=== PATIENT | female | born 1990 | race Caucasian/White ===

== ENCOUNTER 2016-11-06 19:21 | Emergency (ER) | payer MEDICAID ==
--- NOTE | 2016-11-06 19:40 | EDPHY ---
H & P Stated Complaint: pelvic/rectal pain HPI/ROS: CHIEF COMPLAINT: Rectal pain HISTORY OF PRESENT ILLNESS: The patient is a 26 year old female with history of endometriosis presenting with rectal and pelvic pain. The patient has had 3 laparoscopic surgeries. Her last surgery was in June, at that time she had an IUD placed. Since the IUD was placed she has severe pain pelvic pain and rectal pain during the time of her menstrual cycle. Her pain today is the worse it has been. She took Percocet and Ibuprofen and found no relief. Her pain radiates down her legs. She reports feeling constipated but has been having episodes of diarrhea. She has associated nausea secondary to pain. The patient was seen here 09/10/16 for similar pain and had a transvaginal ultrasound that showed the IUDto be in place. Strings are palpable. She is scheduled for endometriosis surgery in [place] on 11/30/16. REVIEW OF SYSTEMS: A ten point review of systems was performed and is negative with the exception of the items mentioned in the HPI. Source: Patient Exam Limitations: No limitations - Personal History LMP (Females 10-55): IUD In Place Current Tetanus/Diphtheria Vaccine: Unsure Current Tetanus Diphtheria and Acellular Pertussis (TDAP): Unsure - Medical/Surgical History Hx Asthma: No Hx Chronic Respiratory Disease: No Hx Diabetes: No Hx Cardiac Disease: No Hx Renal Disease: No Hx Cirrhosis: No Hx Alcoholism: No Hx HIV/AIDS: No Hx Splenectomy or Spleen Trauma: No Other PMH: endometriosis - Social History Smoking Status: Never smoked Additional Social History: Recently moved here. 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 - Physical Exam Exam: General Appearance: Alert. Vital signs reviewed. Eyes: Pupils equal and round, no conjunctival injection, no discharge. Anicteric. ENT, Mouth: Mucous membranes are moist, no oropharyngeal erythema or edema. Neck: No lymphadenopathy, supple. Respiratory: Lungs are clear to auscultation; no wheezes, rales, or rhonchi. Cardiovascular: Regular rate and rhythm; no murmur, rub, or gallop. Gastrointestinal: Abdomen is soft, lower abdominal nonfocaltenderness, no guarding,no masses or organomegaly, bowel sounds normal. Pelvic: Bimanual exam performed. IUD strings palpable. No cervical motion tenderness. Skin: Warm and dry, no rashes on exposed skin, normal color. Back: Nontender to palpation over the thoracolumbar spine. No CVAT. Extremities: No lower extremity edema, no calf tenderness or swelling. Neurological: Alert and oriented. Moving all four extremities easily and equally. Psychiatric: Normal affect. Constitutional: Initial Vital Signs Temperature (C) 36.7 C 11/06/16 19:25 Heart Rate 96 11/06/16 19:25 Respiratory Rate 20 11/06/16 19:25 Blood Pressure 123/79 H 11/06/16 19:25 O2 Sat (%) 97 11/06/16 19:25 O2 Delivery Mode Room Air Allergies/Adverse Reactions: naproxen Allergy (Verified 11/06/16 19:24) Home Medications: Medication Instructions Recorded oxyCODONE IR [Oxycodone Ir (*)] 5 - 10 mg PO Q6 PRN #20 tab 09/09/16 Klonopin 11/06/16 oxyCODONE/APAP 5/325 [Percocet 1 - 2 tab PO Q4H PRN #10 tab 11/06/16 5/325 (RX)] Medical Decision Making ED Course/Re-evaluation: She received zofran 4 mg IV and Dilaudid 1.5 mg IV. With these measures she attained some pain relief, although not complete. This pain has been present at the time of her expected menses since placement of an IUD in June. IUD appears to be in place based on bimanual exam. US performed in August, at which time IUD was in place. No rectal fissures or hemorrhoids to explain rectal pain. She states that she could not be . I do not suspect ovarian torsion or cyst. I do not suspect appendicitis. I think that her pain is related to her endometriosis. She agrees and also agrees that more aggressive work-up today is not needed. She is primarily interested in pain relief. She is planning surgery mid-November. - Data Points Medications Given: Discontinued Medications Hydromorphone HCl (Dilaudid) 1 mg IVP EDNOW ONE Stop: 11/06/16 20:08 Last Admin: 11/06/16 20:17 Dose: 1 mg Hydromorphone HCl (Dilaudid) 0.5 mg IVP EDNOW ONE Stop: 11/06/16 21:06 Last Admin: 11/06/16 21:00 Dose: 0.5 mg Ondansetron HCl (Zofran) 4 mg IVP EDNOW ONE Stop: 11/06/16 20:08 Last Admin: 11/06/16 20:09 Dose: 4 mg Oxycodone/Acetaminophen (Percocet 5/325mg Prepack#4) 1 btl TAKEHOME EDNOW ONE Stop: 11/06/16 21:04 Last Admin: 11/06/16 21:13 Dose: 1 btl Departure - Departure Disposition: Home, Routine, Self-Care Clinical Impression: Endometriosis Condition: Good Instructions: Endometriosis (ED) Additional Instructions: 1. Followup with your scheduled surgery in [place]. 2. Adult Pain & Fever Control: We recommend Acetaminophen (Tylenol) and Ibuprofen (Motrin,Advil) for pain and fever control. When fever is high or pain severe, both drugs can be used at the same time, but at different intervals. Please note the time differences. Your dose is: Acetaminophen 450mg every 4 to 6 hours Ibuprofen 400mg every 4 hours with food Note: do not take Acetaminophen with Hydrocodone (Vicodin, Lortab) or Oycodone (Percocet). These medications also contain Acetaminophen. No more than 3000mg of Acetaminophen should be taken in 24 hours (for an adult). 3. Take Oxycodone as directed for severe pain. Stand Alone Forms: Narcotic Guidelines Prescriptions: oxyCODONE/APAP 5/325 [Percocet 5/325 (RX)] 1 - 2 tab PO Q4H PRN #10 tab PRN Reason: Pain, Severe Report Scribed for: Donna Pradhan Report Scribed by: Angie Thurman Date of Report: 11/06/16 Time of Report: 19:55 Physician Review and Approval Statement: 11/06/16 19:40 Portions of this note were transcribed by the medical billing manager. I, Dr. Donna Pradhan, personally performed the history, physical exam, and medical decision- making; and confirmed the accuracy of the information in the transcribed note.
[2016-11-06] MEDS ORDERED: ONDANSETRON 4 MG/2 ML VIAL ONE (19:59)
[2016-11-06] MEDS ORDERED: HYDROmorphONE/DILAUDID 1 MG/ML SYR IVP ONE ×2 (20:07→21:05)
[2016-11-06] MEDS ORDERED: ONDANSETRON 4 MG/2 ML VIAL IVP ONE (20:07)
[2016-11-06] MEDS ORDERED: HYDROmorphONE/DILAUDID 1 MG/ML SYR ONE (20:56)
[2016-11-06] MEDS ORDERED: OXYCODONE/APAP 5/325MG PREPACK#4 BTL TAKEHOME ONE (21:03)
[2016-11-06 21:42] VITALS: BP 101/83; PULSE 98; RESP 16; TEMP 97; O2SAT 93
== END 2016-11-06 21:34 | disposition home or self-care (01) ==
DX: N80.9 Endometriosis, unspecified (principal)
CPT/HCPCS: 96374; J1170; J2405

== ENCOUNTER 2016-11-20 07:49 | Emergency (ER) | payer MEDICAID ==
[2016-11-20 08:00] VITALS: TEMP 98.2
[2016-11-20] MEDS ORDERED: fentaNYL 100 MCG/2 ML INJ IVP ONE (08:08)
[2016-11-20] MEDS ORDERED: HYDROmorphONE/DILAUDID 1 MG/ML SYR IVP ONE ×4 (08:33→11:40)
--- NOTE | 2016-11-20 09:19 | EDPHY ---
H & P Time Seen by Provider: 11/20/16 08:58 HPI/ROS: CHIEF COMPLAINT: Left-sided pelvic pain HISTORY OF PRESENT ILLNESS: 26-year-old female with history of endometriosis presents with severe left-sided pelvic pain. She has a history of severe endometriosis, status post laparoscopy x3 for endometriosis. She is scheduled for a repeat operation on 11/30/2016 in [place]. She takes Percocet daily for ongoing pain. The pain has been worsened since last evening. The pain is in the left lower quadrant and waxes and wanes. No associated symptoms. She took her last Percocet this morning. REVIEW OF SYSTEMS: Constitutional: No fever, no chills Eyes: No visual changes ENT: No sore throat Respiratory: No cough, no shortness of breath Cardiac: No chest pain Genitourinary: no dysuria Musculoskeletal: No leg pain or swelling Skin: rash on left side of back for one-week Neurological: No headache, no numbness, no weakness Psychiatric: Feels anxious Past Medical/Surgical History: Endometriosis Social History: moved to [place] 2 months ago Smoking Status: Never smoked Physical Exam: General Appearance: Alert, appears in pain Eyes: Pupils equal and round, no conjunctival pallo ENT, Mouth: Mucous membranes moist Neck: Normal inspection Respiratory: Lungs are clear to auscultation Cardiovascular: Regular rate and rhythm Gastrointestinal: Abdomen is soft, left lower quadrant tenderness Neurological: A&O, nonfocal, normal gait Skin: Warm and dry, left lumbar area-there is a healing rash of grouped papules , no vesicles or pustules Extremities: normal inspection Psychiatric: appears anxious Constitutional: Initial Vital Signs Temperature (C) 36.8 C 11/20/16 07:50 Heart Rate 95 11/20/16 07:50 Respiratory Rate 20 11/20/16 07:50 Blood Pressure 138/93 H 11/20/16 07:50 O2 Sat (%) 96 11/20/16 07:50 O2 Delivery Mode Room Air Allergies/Adverse Reactions: naproxen Allergy (Unknown, Verified 11/20/16 07:57) Home Medications: Medication Instructions Recorded oxyCODONE/APAP 5/325 [Percocet 1 - 2 tab PO Q4H PRN #10 tab 11/06/16 5/325 (RX)] oxyCODONE/APAP 5/325 [Percocet 1 tab PO Q4 PRN #20 tab 11/20/16325 (*)] oxyCODONE/APAP [Percocet 1 tab PO Q4 PRN #20 tab 11/20/16 (*)] Medical Decision Making - Diagnostics Imaging: Pelvic ultrasound read by the radiologist reveals a 10 mm left hemorrhagic ovarian cyst, no free fluid or torsion. ED Course/Re-evaluation: Patient presents with severe pelvic pain. Stat test to rule out ectopic is negative. Stat ultrasound reveals a small ovarian cyst, otherwise normal. Presentation c/w endometriosis. The patient was given Dilaudid 1 mg IV on arrival. This was followed by multiple doses of IV Dilaudid and 1 mg of IV Ativan to control her pain. Her pain was quite difficult to control, but ultimately was under good control. Unfortunately she is allergic to NSAIDs. I wrote a prescription for Percocet. 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 Differential Diagnosis: Differential diagnosis includes though it is not limited to ectopic , ovarian cyst, ovarian torsion, PID, UTI, appendicitis. - Data Points Laboratory Results: Laboratory Results 11/20/16 08:00 11/20/16 08:00 11/20/16 11/20/16 11/20/16 08:00 08:00 08:00 WBC 6.14 10^3/uL 10^3/uL (3.80-9.50) RBC 4.76 10^6/uL 10^6/uL (4.18-5.33) Hgb 15.2 g/dL g/dL (12.6-16.3) Hct 45.2 % % (38.0-47.0) MCV 95.0 fL fL (81.5-99.8) MCH 31.9 pg pg (27.9-34.1) MCHC 33.6 g/dL g/dL (32.4-36.7) RDW 11.7 % % (11.5-15.2) Plt Count 165 10^3/uL 10^3/uL (150-400) MPV 11.7 fL fL (8.7-11.7) Neut % (Auto) 52.1 % % (39.3-74.2) Lymph % (Auto) 39.7 % % (15.0-45.0) [place] % (Auto) 6.7 % % (4.5-13.0) Eos % (Auto) 0.5 % L % (0.6-7.6) Baso % (Auto) 0.7 % % (0.3-1.7) Nucleat RBC Rel Count 0.0 % % (0.0-0.2) Absolute Neuts (auto) 3.20 10^3/uL 10^3/uL (1.70-6.50) Absolute Lymphs (auto) 2.44 10^3/uL 10^3/uL (1.00-3.00) Absolute Monos (auto) 0.41 10^3/uL 10^3/uL (0.30-0.80) Absolute Eos (auto) 0.03 10^3/uL 10^3/uL (0.03-0.40) Absolute Basos (auto) 0.04 10^3/uL 10^3/uL (0.02-0.10) Absolute Nucleated RBC 0.00 10^3/uL 10^3/uL (0-0.01) Immature Gran % 0.3 % % (0.0-1.1) Immature Gran # 0.02 10^3/uL 10^3/uL (0.00-0.10) Sodium 141 mEq/L mEq/L (134-144) Potassium 4.1 mEq/L mEq/L (3.5-5.2) Chloride 104 mEq/L mEq/L (97-110) Carbon Dioxide 23 mEq/l mEq/l (22-31) Anion Gap 14 mEq/L mEq/L (8-16) BUN 16 mg/dL mg/dL (7-23) Creatinine 0.8 mg/dL mg/dL (0.6-1.0) Estimated GFR > 60 Glucose 93 mg/dL mg/dL (70-100) Calcium 10.1 mg/dL mg/dL (8.5-10.4) Beta HCG, Qual NEGATIVE Medications Given: Discontinued Medications Fentanyl (Sublimaze) 0 mcg IVP EDNOW ONE Stop: 11/20/16 08:09 Last Admin: 11/20/16 08:14 Dose: 50 mcg Hydromorphone HCl (Dilaudid) 1 mg IVP EDNOW ONE Stop: 11/20/16 08:34 Last Admin: 11/20/16 08:38 Dose: 1 mg Hydromorphone HCl (Dilaudid) 1 mg IVP EDNOW ONE Stop: 11/20/16 09:24 Last Admin: 11/20/16 09:34 Dose: 1 mg Hydromorphone HCl (Dilaudid) 1 mg IVP EDNOW ONE Stop: 11/20/16 10:24 Last Admin: 11/20/16 10:31 Dose: 1 mg Hydromorphone HCl (Dilaudid) 1 mg IVP EDNOW ONE Stop: 11/20/16 11:41 Last Admin: 11/20/16 11:41 Dose: 1 mg Lorazepam (Ativan Injection) 1 mg IVP EDNOW ONE Stop: 11/20/16 09:24 Last Admin: 11/20/16 09:34 Dose: 1 mg Ondansetron HCl (Zofran) 4 mg IVP EDNOW ONE Stop: 11/20/16 11:41 Last Admin: 11/20/16 11:41 Dose: 4 mg Departure - Departure Disposition: Home, Routine, Self-Care Clinical Impression: Pelvic pain Condition: Good Instructions: Pelvic Pain in Women (ED) Additional Instructions: Follow-up with your nuclear powerplant supervisor. Return for worsening symptoms or any concerns. Referrals: Cristin Hutchinson MD [Medical Doctor] - As per Instructions Prescriptions: oxyCODONE/APAP 5/325 [Percocet 5/325 (*)] 1 tab PO Q4 PRN #20 tab PRN Reason: pain oxyCODONE/APAP 5/325 [Percocet 5/325 (*)] 1 tab PO Q4 PRN #20 tab PRN Reason: pain
[2016-11-20] MEDS ORDERED: LORazepam 2 MG/ML INJ IVP ONE (09:23)
[2016-11-20 09:56] LABS: % IMMATURE GRANULYOCYTES 0.3 % (0.0-1.1); ABSOLUTE IMMATURE GRANULOCYTES 0.02 10^3/uL (0.00-0.10); ADD DIFF? NO; ADD MORPH? NO; ADD SCAN? NO; ATYPICAL LYMPHOCYTE FLAG 30 (0-99); FRAGMENT RBC FLAG 0 (0-99); HEMATOCRIT 45.2 % (38.0-47.0); HEMOGLOBIN 15.2 g/dL (12.6-16.3); LEFT SHIFT FLG 0 (0-99); LIPEMIA HEMOLYSIS FLAG 80 (0-99); MEAN CELL HEMOGLOBIN 31.9 pg (27.9-34.1); MEAN CELL HEMOGLOBIN CONCENTR. 33.6 g/dL (32.4-36.7); MEAN PLATELET VOLUME 11.7 fL (8.7-11.7); PLATELET CLUMPS FLAG 0 (0-99); PLATELET COUNT 165 10^3/uL (150-400); RED BLOOD CELL COUNT 4.76 10^6/uL (4.18-5.33); RED CELL DISTRIBUTION WIDTH 11.7 % (11.5-15.2)
[2016-11-20 10:03] LABS: ANION GAP 14 mEq/L (8-16); CALCIUM 10.1 mg/dL (8.5-10.4); CARBON DIOXIDE 23 mEq/l (22-31); CHLORIDE 104 mEq/L (97-110); CREATININE 0.8 mg/dL (0.6-1.0); GLOMERULAR FILTRATION RATE > 60; GLUCOSE 93 mg/dL (70-100); POTASSIUM 4.1 mEq/L (3.5-5.2); SODIUM 141 mEq/L (134-144)
[2016-11-20] MEDS ORDERED: HYDROmorphONE/DILAUDID 1 MG/ML SYR ONE (11:33)
[2016-11-20] MEDS ORDERED: ONDANSETRON 4 MG/2 ML VIAL ONE (11:36)
[2016-11-20] MEDS ORDERED: ONDANSETRON 4 MG/2 ML VIAL IVP ONE (11:40)
[2016-11-20 11:41] VITALS: BP 101/56; O2SAT 96
[2016-11-20 12:31] VITALS: PULSE 78; RESP 18
== END 2016-11-20 12:38 | disposition home or self-care (01) ==
DX: R10.2 Pelvic and perineal pain (principal)
CPT/HCPCS: 96374; J1170; J2405; J3010

== ENCOUNTER 2017-01-07 15:20 | Inpatient (IN) | payer MEDICAID ==
--- NOTE | 2017-01-07 15:30 | EDPHY ---
H & P Time Seen by Provider: 01/07/17 15:29 HPI/ROS: CHIEF COMPLAINT: Fever, lower abdominal pain, constipation. HISTORY OF PRESENT ILLNESS: The patient is a 26-year-old female with a history of endometriosis presenting with fever, sharp lower abdominal pain, and constipation for the past 3 days. She had laparoscopic surgery 5 weeks ago for endometriosis and had a partial sigmoid colon resection at that time. She has not had a normal bowel movement since the surgery and admits having a decreased appetite. She denies vomiting, diarrhea, dysuria, or other complaints. Her last period began 3 days ago and coincided with the onset of her other symptoms today. REVIEW OF SYSTEMS: A complete 10-point review of systems was performed and is negative except for those items mentioned in the HPI. Past Medical/Surgical History: Endometriosis. Social History: From [place]. Smoking Status: Never smoked Physical Exam: General Appearance: Alert, no distress Eyes: Pupils equal and round, no conjunctival pallor or injection ENT, Mouth: Mucous membranes moist Neck: Normal inspection Respiratory: Lungs are clear to auscultation Cardiovascular: Regular rate and rhythm Gastrointestinal: Abdomen is soft, normal bowel sounds. LLQ tenderness. Neurological: A&O, nonfocal, normal gait Skin: Warm and dry, no rash Extremities: Nontender, no pedal edema Psychiatric: Mood and affect normal Constitutional: Initial Vital Signs Temperature (C) 36.9 C 01/07/17 15:22 Heart Rate 105 H 01/07/17 15:22 Respiratory Rate 18 01/07/17 15:22 Blood Pressure 109/69 01/07/17 15:22 O2 Sat (%) 99 01/07/17 15:22 O2 Delivery Mode Room Air Allergies/Adverse Reactions: naproxen Allergy (Unknown, Verified 01/07/17 18:44) Dyspnea Home Medications: Medication Instructions Recorded Herbals/Supplements -Info Only 1 ea PO DAILY 01/07/17 Ibuprofen [Motrin (*)] 400 mg PO PRN PRN 01/07/17 Methylnaltrexone [place] [Relistor] 300 mg PO DAILY PRN 01/07/17 Multivitamins [Multivitamin (*)] 1 each PO DAILY 01/07/17 Progesterone, Micronized 100 mg PO HS 01/07/17 [Progesterone] clonazePAM [Klonopin (*)] 0.5 mg PO DAILY PRN 01/07/17 oxyCODONE/APAP 5/325 [Percocet 1 - 2 tab PO Q4 PRN 01/07/17 (*)] Medical Decision Making - Diagnostics Imaging Results: Imaging Impressions Abdomen CT 01/07/17 16:22 Impression: 1. Complex fluid collection associated with the operative bed of recent surgery is presumed to represent postoperative abscess with multiloculated benign fluid collection felt to be much less likely. 2. See above report for additional findings. Results called and discussed with Venessa Bellamy M.D. on 01/07/2017 at 1738 hours. ED Course/Re-evaluation: 26-year-old female with a history of endometriosis and chronic pelvic pain presents with lower abdominal pain, constipation, and fever. She is status-post sigmoid colon resection 5 weeks ago. On exam she is tender in the left lower quadrant. I have low suspicion for bowel obstruction. We will obtain an abdomen/ pelvis CT. I reviewed this patient on the [place] Prescription Drug Monitoring Program and I am familiar with her. Her last prescription of narcotics was 90 Percocet Tablets 01/02/2017. WBC elevated at 14.99. UA c/w UTI. 1733: CT results conveyed to me by radiology as post-operative abscess. See Imaging Reports section for official report. Results discussed with the patient. 1739: Invanz 1 g IV given. Consulted with Dr. Mcknight, surgery. Dr. Montes De Oca saw the patient emergency department and will admit the patient to the hospital. Differential Diagnosis: Differential diagnosis includes though it is not limited to appendicitis, cholecystitis, diverticulitis, pyelonephritis, bowel perforation, small bowel obstruction. - Data Points Laboratory Results: Laboratory Results 01/07/17 15:44 01/07/17 15:44 01/07/17 01/07/17 01/07/17 16:25 15:44 15:44 WBC 14.99 10^3/uL H 10^3/uL (3.80-9.50) RBC 4.12 10^6/uL L 10^6/uL (4.18-5.33) Hgb 12.9 g/dL g/dL (12.6-16.3) Hct 39.3 % % (38.0-47.0) MCV 95.4 fL fL (81.5-99.8) MCH 31.3 pg pg (27.9-34.1) MCHC 32.8 g/dL g/dL (32.4-36.7) RDW 12.2 % % (11.5-15.2) Plt Count 233 10^3/uL 10^3/uL (150-400) MPV 11.0 fL fL (8.7-11.7) Neut % (Auto) 80.0 % H % (39.3-74.2) Lymph % (Auto) 10.9 % L % (15.0-45.0) [place] % (Auto) 8.3 % % (4.5-13.0) Eos % (Auto) 0.1 % L % (0.6-7.6) Baso % (Auto) 0.2 % L % (0.3-1.7) Nucleat RBC Rel Count 0.0 % % (0.0-0.2) Absolute Neuts (auto) 12.00 10^3/uL H 10^3/uL (1.70-6.50) Absolute Lymphs (auto) 1.63 10^3/uL 10^3/uL (1.00-3.00) Absolute Monos (auto) 1.24 10^3/uL H 10^3/uL (0.30-0.80) Absolute Eos (auto) 0.01 10^3/uL L 10^3/uL (0.03-0.40) Absolute Basos (auto) 0.03 10^3/uL 10^3/uL (0.02-0.10) Absolute Nucleated RBC 0.00 10^3/uL 10^3/uL (0-0.01) Immature Gran % 0.5 % % (0.0-1.1) Immature Gran # 0.08 10^3/uL 10^3/uL (0.00-0.10) Sodium 135 mEq/L mEq/L (134-144) Potassium 4.0 mEq/L mEq/L (3.5-5.2) Chloride 98 mEq/L mEq/L (97-110) Carbon Dioxide 26 mEq/l mEq/l (22-31) Anion Gap 11 mEq/L mEq/L (8-16) BUN 9 mg/dL mg/dL (7-23) Creatinine 0.6 mg/dL mg/dL (0.6-1.0) Estimated GFR > 60 Glucose 96 mg/dL mg/dL (70-100) Calcium 9.9 mg/dL mg/dL (8.5-10.4) Lipase 74.0 IU/L IU/L (23-300) Urine Color YELLOW Urine Appearance CLEAR Urine pH 6.0 (5.0-7.5) Ur Specific [place] 1.003 (1.002-1.030) Urine Protein NEGATIVE (NEGATIVE) Urine Ketones NEGATIVE (NEGATIVE) Urine Blood 1+ H (NEGATIVE) Urine Nitrate NEGATIVE (NEGATIVE) Urine Bilirubin NEGATIVE (NEGATIVE) Urine Urobilinogen NEGATIVE EU EU (0.2-1.0) Ur Leukocyte Esterase NEGATIVE (NEGATIVE) Urine RBC 1-3 /hpf /hpf (0-3) Urine WBC 3-5 /hpf H /hpf (0-3) Ur Epithelial Cells TRACE /lpf /lpf (NONE-1+) Urine Bacteria 2+ /hpf H /hpf (NONE SEEN) Urine Glucose NEGATIVE (NEGATIVE) Medications Given: Discontinued Medications Sodium Chloride (Ns) 1,000 mls @ 0 mls/hr IV ONCE ONE PRN Reason: Wide Open Stop: 01/07/17 16:17 Last Admin: 01/07/17 16:00 Dose: 1,000 mls Ertapenem 1 gm/ Sodium (Chloride) 100 mls @ 200 mls/hr IV EDNOW ONE PRN Reason: Protocol Stop: 01/07/17 18:06 Last Admin: 01/07/17 18:01 Dose: 100 mls Departure - Departure Disposition: [facility] Acute Clinical Impression: Postoperative abscess Qualifiers: Encounter type: initial encounter Qualified Code(s): T81.4XXA - Infection following a procedure, initial encounter Condition: Fair Report Scribed for: Venessa Bellamy Report Scribed by: Boyd Bal Date of Report: 01/07/17 Time of Report: 15:30 Physician Review and Approval Statement: 01/07/17 15:30 Portions of this note were transcribed by a medical technician. I personally performed a history, physical exam, medical decision making, and confirmed accuracy of information the transcribed note.
[2017-01-07] MEDS ORDERED: NS 1,000 ML IV ONE (16:16)
[2017-01-07 16:31] LABS: % IMMATURE GRANULYOCYTES 0.5 % (0.0-1.1); ABSOLUTE IMMATURE GRANULOCYTES 0.08 10^3/uL (0.00-0.10); ADD DIFF? NO; ADD MORPH? NO; ADD SCAN? NO; ATYPICAL LYMPHOCYTE FLAG 0 (0-99); FRAGMENT RBC FLAG 0 (0-99); HEMATOCRIT 39.3 % (38.0-47.0); HEMOGLOBIN 12.9 g/dL (12.6-16.3); LEFT SHIFT FLG 0 (0-99); LIPEMIA HEMOLYSIS FLAG 80 (0-99); MEAN CELL HEMOGLOBIN 31.3 pg (27.9-34.1); MEAN CELL HEMOGLOBIN CONCENTR. 32.8 g/dL (32.4-36.7); MEAN CELL VOLUME 95.4 fL (81.5-99.8); PLATELET CLUMPS FLAG 10 (0-99); PLATELET COUNT 233 10^3/uL (150-400); RED BLOOD CELL COUNT 4.12 10^6/uL (4.18-5.33); RED CELL DISTRIBUTION WIDTH 12.2 % (11.5-15.2)
[2017-01-07 16:45] LABS: ANION GAP 11 mEq/L (8-16); CALCIUM 9.9 mg/dL (8.5-10.4); CARBON DIOXIDE 26 mEq/l (22-31); CHLORIDE 98 mEq/L (97-110); CREATININE 0.6 mg/dL (0.6-1.0); GLOMERULAR FILTRATION RATE > 60; GLUCOSE 96 mg/dL (70-100); SODIUM 135 mEq/L (134-144)
[2017-01-07 16:46] LABS: COLOR YELLOW; LEUKOCYTE ESTERASE,URINE NEGATIVE (NEGATIVE); NITRITE,URINE NEGATIVE (NEGATIVE)
[2017-01-07 16:54] LABS: BACTERIA 2+ /hpf (NONE SEEN)
[2017-01-07] MEDS ORDERED: IOPAMIDOL (ISOVUE-300) 100 ML BTL IV ONE (17:06)
[2017-01-07] MEDS ORDERED: ERTAPENEM 1 GM in NS 100 ML IV ONE (17:37)
[2017-01-07] MEDS ORDERED: METHYLNALTREXONE BROMIDE PO PRN (19:00)
--- NOTE | 2017-01-07 19:36 | GDS ---
[f rep st] TRANSFER SUMMARY CHIEF COMPLAINT: Lower abdominal pain, chills, fever. PRESENT ILLNESS: A 26-year-old female who 5 weeks ago was in [place], [place], at a specialist having surgery for endometriosis. She has had 3 previous laparoscopies for endometriosis. She und erwent resection of endometrial tissue as well as a sigmoid colectomy. She was having an uneventful recovery when she started having fevers and chills for the last [address] scan done today in [facility] [place] emergency department shows a 6 cm pelvic abscess. This would be drained by IR through a transglut eal approach. PAST MEDICAL HISTORY: ALLERGIES: Naprosyn. CURRENT MEDICATIONS: Percocet. The patient has been on Percocet many years and has a chronic pain doctor she has just started with. She has chronic pelvic pain. Klonopin 0.5 mg daily. SOCIAL HISTORY: Nonsmoker. No alcohol use. PREVIOUS SURGERY: Laparoscopy x3, recent colectomy. REVIEW OF SYSTEMS: Denies asthma, heart trouble, diabetes, epilepsy, rheumatic fever. PHYSICAL EXAMINATION: GENERAL: Pleasant, slender female. HEENT: No scleral icterus. Pharynx deshaun ar. NECK: Supple without adenopathy. LUNGS: Clear. HEART: Normal S1, S2 without murmur. ABDOM EN: Soft, but tender in the lower quadrants. EXTREMITIES: Unremarkable. NEURO: Unremarkable. CT is reviewed and shows the pelvic fluid collection. LABORATORY DATA: Includes a white blood count of 15,000. ASSESSMENT: Pelvic abscess 5 weeks after a colectomy. RECOMMENDATIONS: Admit. IV ertapenem started. IR drainage of pelvic abscess. Appropriate antibio tics after culture. /[id number]/MODL
[2017-01-07] MEDS: LR 1,000 ML IV SCH (20:37)
[2017-01-07] MEDS: PROGESTERONE,MICR 100 MG CAP PO SCH (20:48)
[2017-01-07] MEDS: oxyCODONE IR 5 MG TAB PO PRN (20:48)
[2017-01-07] MEDS: DIAZEPAM 5 MG TAB PO PRN (21:43)
--- NOTE | 2017-01-07 21:45 | SOAPPROG ---
SOAP Progress Note Assessment/Plan: Assessment: Reviewed images. Transgluteal approach would be needed. Patient on board with procedure tomorrow with IVCS. Had dinner tonight. Plan: CT guided abscess drain placement tomorrow. CT informed. It will either be Dr. Gordon, who is on CT, or myself. Thank you for consulting IR. 01/07/17 21:43 Subjective: Patient in no apparent distress. Bowel surgery 5 weeks ago in [place]. Objective: Vital Signs Temp Pulse Resp BP Pulse Ox 37.0 C 116 H 20 114/76 97 01/07/17 19:41 01/07/17 19:41 01/07/17 19:41 01/07/17 19:41 01/07/17 19:41 01/06/17 01/07/17 01/08/17 05:59 05:59 05:59 Intake Total 1000 Balance 1000 Labs and vitals noted. ICD10 Worksheet Patient Problems: Problems Problem Status Onset Postoperative abscess Acute
[2017-01-08] MEDS: oxyCODONE IR 5 MG TAB PO PRN ×4 (01:56→20:30)
[2017-01-08] MEDS: HYDROmorphONE/DILAUDID 1 MG/ML SYR IVP PRN ×4 (02:00→20:31)
[2017-01-08] MEDS: ONDANSETRON DISINTEGRATING 4 MG TAB PO PRN ×2 (02:05→05:56)
[2017-01-08] MEDS: LR 1,000 ML IV SCH ×2 (05:55→20:30)
[2017-01-08] MEDS: DIAZEPAM 5 MG TAB PO PRN ×2 (08:21→15:30)
[2017-01-08 08:24] LABS: APTT 30.9 SEC (23.0-38.0); INR 1.15 (0.83-1.16); PROTIME(PATIENT) 14.6 SEC (12.0-15.0)
--- NOTE | 2017-01-08 08:35 | SOAPPROG ---
SOAP Progress Note Assessment/Plan: Assessment/Plan: 26 Y F s/p laparotomy c bowel resection in [place] on 11/30. Now with multiloculated abscess on CT. Abscess. IR drainage today. Chronic opioid dependence. Patient is established with a pain MD as of last week she says. Continue IV abx and supportive care. Constipation. Likely 2/2 narcotic use. On relistor. Has been using fiber, hydration, walking at home. Will order bowel protocol. Dispo: pending. Seen and examined with Dr. Porter. 01/08/17 08:37 Subjective: very nervous. c/o constipation. Objective: Vital Signs Temp Pulse Resp BP Pulse Ox 37.3 C 107 H 16 103/63 95 01/08/17 07:31 01/08/17 07:31 01/08/17 07:31 01/08/17 07:31 01/08/17 07:31 01/07/17 01/08/17 01/09/17 05:59 05:59 05:59 Intake Total 1900 Balance 1900 PT 14.6 SEC (12.0-15.0) 01/08/17 08:04 INR 1.15 (0.83-1.16) 01/08/17 08:04 gen: alert nad nontoxic appearing no wob abd soft, +lower abd tenderness, inc cdi ICD10 Worksheet Patient Problems: Problems Problem Status Onset Postoperative abscess Acute
[2017-01-08] MEDS ORDERED: POLYETHYLENE GLYCOL 3350 17 GM PKT PO PRN (08:36)
[2017-01-08] MEDS ORDERED: BISACODYL 10 MG SUPP PR PRN (08:36)
[2017-01-08] MEDS ORDERED: MAGNESIUM HYDROXIDE 30 ML UDCUP PO PRN (08:36)
[2017-01-08] MEDS ORDERED: LACTULOSE 20 GM/30 ML UDCUP PO PRN (08:36)
[2017-01-08] MEDS: SENNOSIDES/DOCUSATE SODIUM TAB PO SCH ×2 (08:50→20:32)
[2017-01-08] MEDS ORDERED: NS 1,000 ML IV SCH (10:00)
--- NOTE | 2017-01-08 10:48 | SOAPPROG ---
SOAP Progress Note Assessment/Plan: Assessment: wound ok/ afebrile/ awaiting pelvic drainage by ir abd soft Plan:abscess drainage today 01/08/17 10:47 Objective: Vital Signs Temp Pulse Resp BP Pulse Ox 37.3 C 107 H 16 103/63 95 01/08/17 07:31 01/08/17 07:31 01/08/17 07:31 01/08/17 07:31 01/08/17 07:31 01/07/17 01/08/17 01/09/17 05:59 05:59 05:59 Intake Total 1900 Balance 1900 PT 14.6 SEC (12.0-15.0) 01/08/17 08:04 INR 1.15 (0.83-1.16) 01/08/17 08:04 ICD10 Worksheet Patient Problems: Problems Problem Status Onset Postoperative abscess Acute
[2017-01-08] MEDS ORDERED: fentaNYL 100 MCG/2 ML INJ ONE ×2 (11:33→12:49)
[2017-01-08] MEDS ORDERED: MIDAZOLAM 2 MG/2 ML VIAL ONE ×2 (11:33→12:49)
[2017-01-08] MEDS ORDERED: FLUMAZENIL 0.5 MG/5 ML MDV IVP ONE (11:34)
[2017-01-08] MEDS ORDERED: NALOXONE HCL 0.4 MG/ML INJ ONE (11:34)
[2017-01-08] MEDS ORDERED: HYDROmorphONE/DILAUDID 2 MG/ML INJ ONE (13:33)
[2017-01-08] MEDS ORDERED: ACETAMINOPHEN 325 MG TAB PO PRN (14:17)
[2017-01-08] MEDS ORDERED: HYDROmorphONE/DILAUDID 1 MG/ML SYR ONE (14:18)
[2017-01-08] MEDS: ERTAPENEM 1 GM in NS 100 ML IV SCH (15:31)
[2017-01-08] MEDS: PROGESTERONE,MICR 100 MG CAP PO SCH (20:31)
[2017-01-09] MEDS: oxyCODONE IR 5 MG TAB PO PRN ×5 (00:02→20:33)
[2017-01-09] MEDS: DIAZEPAM 5 MG TAB PO PRN (00:04)
[2017-01-09] MEDS: HYDROmorphONE/DILAUDID 1 MG/ML SYR IVP PRN (05:04)
[2017-01-09] MEDS: SENNOSIDES/DOCUSATE SODIUM TAB PO SCH ×2 (08:10→20:33)
[2017-01-09] MEDS: ERTAPENEM 1 GM in NS 100 ML IV SCH (12:20)
--- NOTE | 2017-01-09 12:54 | SOAPPROG ---
SOAP Progress Note Assessment/Plan: Assessment/Plan: 26 Y F s/p laparotomy c bowel resection in [place] on 11/30. Now with multiloculated abscess on CT. Abscess/infected hematoma, also UTI: S/p IR drainage yesterday. Drain site sore but abdominal pain improved. Afebrile. Infectious disease consulted. Urinary retention: resolving off IV pain medicines. Has not needed catheterization. Constipation: Bowel regimen ordered. Likely 2/2 narcotic use. On relistor. Has been using fiber, hydration, walking at home. Dispo: pending. Seen and examined with Dr. Porter. S: abdominal pain better today. has had night sweats. O: alert, nad mmm, ncat ctab rrr abd softly bloated, inc cdi, drain thin clear rust colored serosanguinous 01/09/17 12:49 Objective: Vital Signs Temp Pulse Resp BP Pulse Ox 36.6 C 87 14 113/72 95 01/09/17 12:00 01/09/17 12:00 01/09/17 12:00 01/09/17 12:00 01/09/17 12:00 Microbiology 01/08/17 13:20 Gram Stain - Final Pelvis - Other 01/08/17 01/09/17 01/10/17 05:59 05:59 05:59 Intake Total 1900 900 Output Total 50 300 Balance 1900 850 -300 PT 14.6 SEC (12.0-15.0) 01/08/17 08:04 INR 1.15 (0.83-1.16) 01/08/17 08:04 ICD10 Worksheet Patient Problems: Problems Problem Status Onset Postoperative abscess Acute
--- NOTE | 2017-01-09 12:56 | GCON ---
[f rep st] CONSULTATION INFECTIOUS DISEASE CONSULTATION DATE OF CONSULTATION: 01/09/2017 REFERRING PHYSICIAN: Sinan Porter MD REASON FOR CONSULTATION: Pelvic abscess for further evaluation and management. CHIEF COMPLAINT: Lower abdominal pain, fevers, and night sweats. HISTORY OF PRESENT ILLNESS: This is a 26-year-old female with a past medical history significant for stage IV endometriosis who is status post 3 prior surgeries for that over the past 3 years. Most recently, about 5-6 weeks ago she went to a specialist in [place], [place], and underwent surgery for endometriosis. During that surgery, they also removed her sigmoid colon. She stayed in the hospital there for about 1 week and was doing well. She has returned here to [place] and relatively was doing better. She was having decreasing amounts of lower pelvic pain from the surgery up until last week, around January 04. At that time, she had her first bout of her period. This was also associated with fevers, shaking chills, and drenching sweats. Her fevers went up to about 100.8. She contacted her local [employer], who advised her to continue to monitor her symptoms at that point. Over the next several days, she continued to have low-grade intermittent fevers with chills and drenching sweats. However, her abdominal pain was getting worse and more progressive. She underwent a CAT scan of the abdomen on January 07, where they found a 6.4 x 5 x 3.1 cm left-sided deep pelvic abscess. There were other smaller loculations noted in the pericolic soft tissue. During the workup in the ER, she was noted to have a white blood cell count of 14.9 with a left shift. She had a urinalysis done which showed urine WBCs of 3-5 with 1+ blood. A urine culture was sent. She was given a dose of Invanz on January 07 as well as January 08. Her urine culture has grown out greater than 100,000 enterococcus faecalis. Yesterday, she underwent drainage by IR of the pelvic abscess. The Gram stain of that is showing 3+ polys but no organisms. The patient does deny dysuria; however, she has been complaining of some degree of urinary retention recently, which she states has improved this morning. Infectious Disease is now consulted for further evaluation and opinion regarding the above. REVIEW OF SYSTEMS: GENERAL: Fevers, shaking chills, and drenching night sweats as above. She has been having some mild headache each day for the last 4 -5 days, which is improved today. Denies any neck stiffness. HEENT: Eyes: No change in vision. ENT: No sore throat, difficulty swallowing, ear pain, or drainage. CARDIOVASCULAR : Denies any chest pain or rapid heartbeat. RESPIRATORY: Denies any shortness of breath, cough, or sputum production. ABDOMEN: No nausea, vomiting, or diarrhea. Belly pain as above. : No dysuria. No hematuria. No flank pain or back pain. MUSCULOSKELETAL: Denies any joint pains or muscle aches. SKIN: No rashes or open wounds. Rest of 10- point review of systems essentially negative except for above. PAST MEDICAL HISTORY: Significant for stage IV endometriosis. PAST SURGICAL HISTORY: Significant for 3 prior laparoscopies for endometriosis. ALLERGIES: Naproxen. SOCIAL HISTORY: She is a nonsmoker. She used to drink alcohol occasionally; last alcoholic drink she states was about 6 months ago. Denies IV drug usage. She smokes marijuana occasionally. She is living with her father here in [place]. She recently moved from [place], [place], around August 2016. No pets. No other recent travels other than recently to [place]. FAMILY HISTORY: Significant for breast cancer in her aunt on her father's side. MEDICATIONS: As per MAR. PHYSICAL EXAMINATION: VITAL SIGNS: Temperature current is 36.6; T-max was 37.7. Heart rate is 100. Respiratory rate is 14. Blood pressure 110/71. Saturation 95% on room air. GENERAL: Patient is resting in bed in no acute respiratory distress. She did appear to be in pain, especially on the left side. HEENT: Head is normocephalic, atraumatic. Pupils are equal, round, and reactive to light. There is no conjunctival injection and no petechiae noted. Oropharynx is clear. No posterior erythema or thrush. CARDIOVASCULAR: S1, S2. Regular rhythm. Not tachycardic at present. No murmurs appreciated. RESPIRATORY: Clear to auscultate bilaterally. No rhonchi or rales appreciated. ABDOMEN: Slightly distended. Positive bowel sounds present. Previous laparoscopic sites were noted and they are well healed. There is no surrounding erythema. Left back with a MAX drain in place with serosanguineous material noted. EXTREMITIES: No lower extremity edema. MUSCULOSKELETAL: No joint effusions or pain on palpation of the joints. SKIN: No obvious rashes. LABORATORY DATA: White blood cell count is 14.9, hemoglobin 12.9, platelets are 233, neutrophil count is 80%. INR is 1.1. Sodium 135, potassium 4.0, chloride 98, bicarb 26, BUN 9, creatinine 0.6. No LFTs checked. Urinalysis: 1 + blood, negative nitrites, negative leukocyte esterase. Urine WBCs 3-5 and 2+ bacteria noted. Microbiology: Urine culture with greater than 100,000 Enterococcus faecalis. Pelvic culture with no organisms, 3+ polys, and culture pending. Imaging results have all been reviewed by me. She had an IR drainage yesterday with 15-20 mL of thick sanguinous material aspirated out. A 10-[place] Ze[place]ander drain was left in place. ASSESSMENT: 1. Left deep pelvic abscess. 2. Urine culture with Enterococcus faecalis, likely colonization. 3. Stage IV endometriosis, status post surgery and sigmoid resection. PLAN: At this point in time, patient has currently been on Invanz therapy. She continues to have drenching sweats despite IR drainage yesterday and current Invanz therapy. We will switch over to Zosyn for broader coverage including, Enterococcus in the event that her pelvic abscess may have some component of Enterococcus infection. Her urine culture with greater than 100, 000 Enterococcus faecalis but without symptoms is more likely suggestive of urinary colonization, and she did have some urinary retention so perhaps not totally unexpected to see bacteria isolated. We will follow up on her cultures. We will recheck CBC and CMP in the a.m. to follow course of therapy. She will need followup imaging at some point to assess for resolution of abscess. Plan of care was discussed at length with the patient, including possible duration of drain, followup imaging at some point, antibiotic therapy, etc. Care was coordinated with her RN as well. Thank you very much for providing this opportunity to care for your patient in consultation. /[id number]/MODL MTDD
[2017-01-09] MEDS: PIPERACILLIN/TAZO 4.5 GM/DEX 100 ML IV SCH ×2 (13:29→18:00)
[2017-01-09] MEDS: PROGESTERONE,MICR 100 MG CAP PO SCH (20:33)
[2017-01-10] MEDS: oxyCODONE IR 5 MG TAB PO PRN ×5 (00:41→22:28)
[2017-01-10] MEDS: DIAZEPAM 5 MG TAB PO PRN ×3 (00:43→22:27)
[2017-01-10] MEDS: PIPERACILLIN/TAZO 4.5 GM/DEX 100 ML IV SCH ×2 (00:43→06:45)
[2017-01-10 05:20] LABS: % IMMATURE GRANULYOCYTES 0.7 % (0.0-1.1); ABSOLUTE IMMATURE GRANULOCYTES 0.04 10^3/uL (0.00-0.10); ADD DIFF? NO; ADD MORPH? NO; ADD SCAN? NO; ATYPICAL LYMPHOCYTE FLAG 0 (0-99); FRAGMENT RBC FLAG 0 (0-99); HEMATOCRIT 32.2 % (38.0-47.0); HEMOGLOBIN 10.7 g/dL (12.6-16.3); LEFT SHIFT FLG 0 (0-99); LIPEMIA HEMOLYSIS FLAG 80 (0-99); MEAN CELL HEMOGLOBIN 31.4 pg (27.9-34.1); MEAN CELL HEMOGLOBIN CONCENTR. 33.2 g/dL (32.4-36.7); MEAN CELL VOLUME 94.4 fL (81.5-99.8); MEAN PLATELET VOLUME 10.2 fL (8.7-11.7); PLATELET CLUMPS FLAG 0 (0-99); PLATELET COUNT 223 10^3/uL (150-400); RED BLOOD CELL COUNT 3.41 10^6/uL (4.18-5.33); RED CELL DISTRIBUTION WIDTH 12.3 % (11.5-15.2)
[2017-01-10 05:31] LABS: ALANINE AMINOTRANSFERASE 31 IU/L (9-52); ALBUMIN 3.2 g/dL (3.5-5.0); ALKALINE PHOSPHATASE 81 IU/L (38-126); ANION GAP 10 mEq/L (8-16); ASPARTATE AMINOTRANSFERASE 22 IU/L (14-46); BILIRUBIN,TOTAL 0.5 mg/dL (0.1-1.4); CARBON DIOXIDE 29 mEq/l (22-31); CHLORIDE 102 mEq/L (97-110); CREATININE 0.6 mg/dL (0.6-1.0); GLOMERULAR FILTRATION RATE > 60; GLUCOSE 87 mg/dL (70-100); POTASSIUM 4.2 mEq/L (3.5-5.2); SODIUM 141 mEq/L (134-144)
[2017-01-10] MEDS: SENNOSIDES/DOCUSATE SODIUM TAB PO SCH ×2 (08:19→20:09)
--- NOTE | 2017-01-10 09:55 | SOAPPROG ---
SOAP Progress Note Assessment/Plan: Assessment: 26yo female s/p IR drainage of pelvic fluid collection with no growth, s/p recent lap surgery for endometriosis, sigmoidectomy. "Feel better than Sunday, when I came in", tolerating regular diet, ambulating. Still having night sweats -- had to change gown this AM. PE awake alert Chest CTA B/L Abdomen minimal distension, bowel sounds present, very soft drain with scant serosag drainage. Plan: await further input from ID, drain is not draining and no growth on review of micro. will discuss with Dr Porter, will discuss next imaging. possibly night sweats are from stepping down narcotic pain meds as patient did resume high amount January 04?? 01/10/17 09:51 Objective: Vital Signs Temp Pulse Resp BP Pulse Ox 36.6 C 95 16 102/61 94 01/10/17 07:41 01/10/17 07:41 01/10/17 07:41 01/10/17 07:41 01/10/17 07:41 Microbiology 01/08/17 13:20 Gram Stain - Final Pelvis - Other Laboratory Results 01/10/17 04:31 01/10/17 04:31 01/09/17 01/10/17 01/11/17 05:59 05:59 05:59 Intake Total 900 1400 Output Total 50 300 Balance 850 1100 PT 14.6 SEC (12.0-15.0) 01/08/17 08:04 INR 1.15 (0.83-1.16) 01/08/17 08:04 ICD10 Worksheet Patient Problems: Problems Problem Status Onset Postoperative abscess Acute
--- NOTE | 2017-01-10 10:45 | PCMIDPN ---
Assessment/Plan: # left multiloculated pelvic likely abscess 6.4 x 5 x 3.1 cm following recent lap surgery for endometriosis excision also requiring sigmoidectomy at outside hospital. Leukocytosis and reported fever on admission. Thick serous fluid obtained from drainage 01/08, 50 cc output the last 24 hours. Gram stain was negative and cultures are still pending. --continue Zosyn. Minimal risk for Pseudomonas, would adjust to standard dose today --will await aspirate culture, likely be able to complete therapy with oral antibiotics. She did get 2 doses antibiotics prior to aspiration --discuss repeat imaging and drain status with surgery # Bacteriuria with enterococcus, no symptoms. Known underlying interstitial cystitis likely accounts for couple WBCs on UA Medications , Abx #3 Zosyn 4.5 g IV Q 6, # 1 Microbiology 01/08 culture: left pelvic abscess aspirate, Gram stain 2+ PMNs, no organisms, culture pending 01/07 urine culture 100,000 enterococcus Subjective: Patient reports feeling symptomatically improved. Denies dysuria or urinary frequency on admission. Objective: Vital Signs Temp Pulse Resp BP Pulse Ox 36.6 C 95 16 102/61 94 01/10/17 07:41 01/10/17 07:41 01/10/17 07:41 01/10/17 07:41 01/10/17 07:41 Microbiology 01/08/17 13:20 Gram Stain - Final Pelvis - Other Laboratory Results 01/10/17 04:31 01/10/17 04:31 01/09/17 01/10/17 01/11/17 05:59 05:59 05:59 Intake Total 900 1400 Output Total 50 300 Balance 850 1100 - Physical Exam General Appearance: alert, no apparent distress, thin, non-toxic EENT: pale conjunctiva, other (Good dentition), No scleral icterus Respiratory: lungs clear Neck: supple Cardiac/Chest: regular rate, rhythm Extremities: No pedal edema Abdomen: non-tender, soft, other (Some discomfort to palpation of bilateral lower abdominal region) Pelvic Exam: No phillips Skin: normal color, warm/dry, No rash Neuro/Psych: alert, normal mood/affect, oriented x 3 ICD10 Worksheet Patient Problems: Problems Problem Status Onset Postoperative abscess Acute
[2017-01-10] MEDS: PIPERACILLIN/TAZO 3.375 GM/DEX 50 ML IV SCH ×3 (13:25→23:21)
[2017-01-10] MEDS: clonazePAM 0.5 MG TAB PO PRN (13:28)
[2017-01-10] MEDS: PROGESTERONE,MICR 100 MG CAP PO SCH (20:09)
[2017-01-11] MEDS: PIPERACILLIN/TAZO 3.375 GM/DEX 50 ML IV SCH ×4 (05:08→23:47)
[2017-01-11] MEDS: oxyCODONE IR 5 MG TAB PO PRN ×5 (05:08→23:43)
[2017-01-11] MEDS: SENNOSIDES/DOCUSATE SODIUM TAB PO SCH ×2 (08:12→19:23)
--- NOTE | 2017-01-11 10:20 | PCMIDPN ---
Assessment/Plan: Assessment: postoperative pelvic abscess due to bacteroides -- managing on IV Zosyn. Doing fairly well apart from diarrhea. Discussed decreasing use of stool softeners. Probable change to po Augmentin for discharge. Drain study planned for tomorrow. Plan: 1) Continue Zosyn for now. 2) Drain study upcoming. 3) Follow clinical course. Plan to change to po Augmentin 875mg PO BID upon discharge. 01/11/17 23:15 01/11/17 23:15 Subjective: Patient is doing pretty well. Diarrhea and looser stools more common today. No fevers. Drain area uncomfortable. Objective: Zosyn #2 (abx #4) Vital Signs Temp Pulse Resp BP Pulse Ox 36.6 C 94 14 111/72 95 01/11/17 08:00 01/11/17 08:00 01/11/17 08:00 01/11/17 08:00 01/11/17 08:00 Microbiology 01/08/17 13:20 Gram Stain - Final Pelvis - Other Laboratory Results 01/10/17 04:31 01/10/17 04:31 01/10/17 01/11/17 01/12/17 05:59 05:59 05:59 Intake Total 1400 625 Output Total 300 5 Balance 1100 620 - Physical Exam General Appearance: WD/WN, alert, no apparent distress, thin, non-toxic Respiratory: lungs clear, normal breath sounds, No respiratory distress Cardiac/Chest: regular rate, rhythm, systolic murmur, No tachycardia Extremities: non-tender, normal inspection Skin: normal color, warm/dry, No rash Neuro/Psych: alert, normal mood/affect, oriented x 3 ICD10 Worksheet Patient Problems: Problems Problem Status Onset Postoperative abscess Acute
[2017-01-11] MEDS: DIAZEPAM 5 MG TAB PO PRN ×2 (12:15→23:43)
[2017-01-11] MEDS: PROGESTERONE,MICR 100 MG CAP PO SCH (20:47)
[2017-01-12] MEDS: oxyCODONE IR 5 MG TAB PO PRN ×4 (05:33→15:06)
[2017-01-12] MEDS: PIPERACILLIN/TAZO 3.375 GM/DEX 50 ML IV SCH ×2 (05:33→12:35)
[2017-01-12 09:06] VITALS: RESP 18; O2SAT 97
[2017-01-12] MEDS: clonazePAM 0.5 MG TAB PO PRN (09:20)
[2017-01-12] MEDS: SENNOSIDES/DOCUSATE SODIUM TAB PO SCH (09:29)
--- NOTE | 2017-01-12 10:20 | PCMIDPN ---
Assessment/Plan: # left multiloculated pelvic abscess 6.4 x 5 x 3.1 cm s/p recent lap surgery for endometriosis excision also requiring sigmoidectomy at outside hospital. Now s/p drainage with culture showing bacteroides. Leukocytosis and fever on admission resolved. --if drain study okay today would dc on Augmentin 875mg PO BID, give 7 day supply. Duration not clear, await assessment of drainage --please send with 1 dose Diflucan 150mg for possible vaginitis --f/u appt 01/19 at 10am in ID clinic # Bacteriuria with enterococcus, no symptoms. Known underlying interstitial cystitis likely accounts for couple WBCs on UA Medications , Abx #5 Zosyn 4.5 g IV Q 6, # 3 Microbiology 01/08 culture: left pelvic abscess aspirate, Gram stain 2+ PMNs, no organisms, culture w bacteroides 01/07 urine culture 100,000 enterococcus Cased discussed with RN and Dr. Porter. Subjective: L lower pelvic pain, typical for endometrial pain Objective: Vital Signs Temp Pulse Resp BP Pulse Ox 36.4 C 89 18 112/78 97 01/12/17 08:00 01/12/17 08:00 01/12/17 08:00 01/12/17 08:00 01/12/17 08:00 Microbiology 01/11/17 19:00 Gastrointestinal Tract Panel (PCR) - Final Stool No Organism Detected 01/08/17 13:20 Gram Stain - Final Pelvis - Other Laboratory Results 01/10/17 04:31 01/10/17 04:31 01/11/17 01/12/17 01/13/17 05:59 05:59 05:59 Intake Total 625 1460 Output Total 5 10 Balance 620 1450 - Physical Exam General Appearance: alert, other (young, well appearing) EENT: No scleral icterus Respiratory: lungs clear, No accessory muscle use Neck: supple Cardiac/Chest: regular rate, rhythm Extremities: No pedal edema Abdomen: non-tender, other (MAX drain upper L buttock with serosang drainage) Skin: No rash Neuro/Psych: alert, normal mood/affect, oriented x 3 ICD10 Worksheet Patient Problems: Problems Problem Status Onset Postoperative abscess Acute
[2017-01-12] MEDS ORDERED: LOPERAMIDE HCL 2 MG CAP PO PRN (12:28)
[2017-01-12 15:52] VITALS: BP 106/77; PULSE 81; TEMP 98.7
[2017-01-12] MEDS ORDERED: IOPAMIDOL (ISOVUE-300) 100 ML BTL IV ONE (16:27)
--- NOTE | 2017-01-12 16:30 | SOAPPROG ---
SOAP Progress Note Assessment/Plan: Assessment: wound ok/ afebrile/ awaiting pelvic drainage by ir abd soft Plan:abscess drainage today 01/08/17 10:47 01/12/17 16:29 seen both yesterday and today. Abdomen soft. Afebrile. Minimal MAX drainage. Plan is a drain study today and if no residual abscess and no bowel communication we will DC the drain / home soon on oral antibiotics Objective: Vital Signs Temp Pulse Resp BP Pulse Ox 37.1 C 81 18 106/77 97 01/12/17 15:51 01/12/17 15:51 01/12/17 15:51 01/12/17 15:51 01/12/17 15:51 Microbiology 01/08/17 13:20 Gram Stain - Final Pelvis - Other 01/11/17 19:00 Gastrointestinal Tract Panel (PCR) - Final Stool No Organism Detected Laboratory Results 01/10/17 04:31 01/10/17 04:31 01/11/17 01/12/17 01/13/17 05:59 05:59 05:59 Intake Total 625 1460 Output Total 5 10 Balance 620 1450 PT 14.6 SEC (12.0-15.0) 01/08/17 08:04 INR 1.15 (0.83-1.16) 01/08/17 08:04 ICD10 Worksheet Patient Problems: Problems Problem Status Onset Postoperative abscess Acute
[2017-01-12] MEDS ORDERED: IOPAMIDOL (ISOVUE 370) 100 ML BTL IV ONE (17:03)
== END 2017-01-12 18:25 | disposition home or self-care (01) | DRG 863 ==
LOC: F3N 19:20
PROVIDERS: ADMIT Surgery; ATTEND Surgery
PROC: 0W9J30Z Drainage of Pelvic Cavity with Drainage Device, Percutaneous Approach (ICD-10-PCS; principal; 2017-01-08 13:57)
DX: T81.4XXA Infection following a procedure, initial encounter (principal); F11.20 Opioid dependence, uncomplicated; B95.2 Enterococcus as the cause of diseases classified elsewhere; K59.03 Drug induced constipation; R33.9 Retention of urine, unspecified; N30.10 Interstitial cystitis (chronic) without hematuria
CPT/HCPCS: 96365; J1170; J1335; J2250; J2310; J2543; J3010; Q9967

== ENCOUNTER 2017-01-18 10:17 | Emergency (ER) | payer MEDICAID ==
[2017-01-18] MEDS ORDERED: ONDANSETRON 4 MG/2 ML VIAL IVP ONE (10:55)
[2017-01-18] MEDS ORDERED: NS 1,000 ML IV ONE (10:55)
[2017-01-18 11:21] LABS: % IMMATURE GRANULYOCYTES 0.4 % (0.0-1.1); ABSOLUTE IMMATURE GRANULOCYTES 0.03 10^3/uL (0.00-0.10); ADD DIFF? NO; ADD MORPH? NO; ADD SCAN? NO; ATYPICAL LYMPHOCYTE FLAG 30 (0-99); FRAGMENT RBC FLAG 0 (0-99); HEMATOCRIT 41.8 % (38.0-47.0); HEMOGLOBIN 13.7 g/dL (12.6-16.3); LEFT SHIFT FLG 0 (0-99); LIPEMIA HEMOLYSIS FLAG 80 (0-99); MEAN CELL HEMOGLOBIN 30.9 pg (27.9-34.1); MEAN CELL HEMOGLOBIN CONCENTR. 32.8 g/dL (32.4-36.7); MEAN CELL VOLUME 94.1 fL (81.5-99.8); MEAN PLATELET VOLUME 10.4 fL (8.7-11.7); PLATELET CLUMPS FLAG 0 (0-99); PLATELET COUNT 285 10^3/uL (150-400); RED BLOOD CELL COUNT 4.44 10^6/uL (4.18-5.33); RED CELL DISTRIBUTION WIDTH 12.9 % (11.5-15.2)
[2017-01-18] MEDS ORDERED: IOPAMIDOL (ISOVUE-300) 100 ML BTL IV ONE (11:31)
[2017-01-18 11:40] LABS: ANION GAP 14 mEq/L (8-16); CALCIUM 10.3 mg/dL (8.5-10.4); CARBON DIOXIDE 26 mEq/l (22-31); CHLORIDE 103 mEq/L (97-110); CREATININE 0.6 mg/dL (0.6-1.0); GLOMERULAR FILTRATION RATE > 60; GLUCOSE 84 mg/dL (70-100); POTASSIUM 4.2 mEq/L (3.5-5.2); SODIUM 143 mEq/L (134-144)
[2017-01-18] MEDS ORDERED: HYDROmorphONE/DILAUDID 1 MG/ML SYR IVP ONE ×3 (11:54→15:55)
--- NOTE | 2017-01-18 12:09 | EDPHY ---
H & P Stated Complaint: Thinks "abcess site" is flaring up again;d/c'd Sunday for same c/o Source: Patient, Family, Old records Exam Limitations: No limitations - Personal History Current Tetanus Diphtheria and Acellular Pertussis (TDAP): Yes - Medical/Surgical History Hx Asthma: No Hx Chronic Respiratory Disease: No Hx Diabetes: No Hx Cardiac Disease: No Hx Renal Disease: No Hx Cirrhosis: No Hx Alcoholism: No Hx HIV/AIDS: No Hx Splenectomy or Spleen Trauma: No Other PMH: endometriosis. chronic pain (under pain mgt care),colon resection - Social History Smoking Status: Never smoked HPI/ROS: CHIEF COMPLAINT: Pelvic pain HISTORY OF PRESENT ILLNESS: Patient complains of increasing left-sided pelvic pain. This has been present since yesterday. It is a gradual onset. Constant duration. Severe, 10/10 pain. Similar to the pain she had she was recently admitted and treated for pelvic abscess. Worse with any kind of palpation movement. Nausea but no vomiting. No fever or chills. No bleeding from the site of the percutaneous drainage. She has a history of endometriosis status post laparoscopy several weeks ago. At that time she developed a postoperative complication with abscess that involved the sigmoid colon. This was subsequently removed. She then developed an abscess that was drained on the 08 of January, for which she was admitted for 1 week. She was discharged home on Sunday with Augmentin which she has taken only has 1 pill left. This pain is different from her previous endometriosis pain. No vaginal bleeding or discharge. Not sexually active. No other associated complaints or modifying factors. PREVIOUS ABDOMINAL SURGERIES/DIAGNOSES: 1. Endometriosis status post laparoscopy x4 2. Sigmoid colectomy 3. Percutaneous drainage of pelvic abscess 4. Interstitial cystitis NPO: Last night REVIEW OF SYSTEMS: Ten systems reviewed and are negative unless otherwise noted in the HPI EXAMINATION: General Appearance: Alert, no distress, tearful but consolable Head: normocephalic, atraumatic Eyes: Pupils equal and round, no conjunctival pallor or injection ENT, Mouth: Mucous membranes moist. Uvula midline. Neck: Normal inspection, supple, non-tender Respiratory: Lungs are clear to auscultation. No wheezing or rhonchi or crackles Cardiovascular: Regular rate and rhythm. No murmur Gastrointestinal: Abdomen is soft with moderate tenderness of the left lower quadrant/pelvis. Guarding of the left lower quadrant No tympany. Non-acute abdomen. Back: non-tender, no bony abnormalities Neurological: GCS 15. A&O, nonfocal, normal gait Skin: Warm and dry, no rash Extremities: Nontender, no pedal edema Psychiatric: Mood and affect normal DIFFERENTIAL DIAGNOSES: Including but not limited to pelvic abscess, postoperative pain, endometriosis, interstitial cystitis, colitis, diverticulitis MDM: 10:45 a.m. Left lower abdominal pelvic pain. This is severe pain for the patient. Abdominal exam reveals some involuntary guarding. This is [address]- guided drainage of pelvic abscess. Vital signs are stable. 11:54 a.m. Notified by Suzette KAHN, patient is complaining of pain is too severe to go to CT scan. I have ordered 1 mg IV Dilaudid. 12:09 p.m. Laboratory studies are all within normal limits. No leukocytosis. No fever. Vital signs were well within normal limits. CT scan is currently being performed. 12:40 p.m. Notified by radiologist Dr. Gordon. CT scan of the abdomen and pelvis reveals similar appearance of the collection of fluid in the pelvis. There is no worsening of this. No other acute findings. 1:00 p.m. I have re-evaluated the patient. Her pain has not improved since time of arrival. This is despite 3 doses of pain medication. I will order pelvic ultrasound to rule out torsion or other pelvic etiologies. 3:00 p.m. There was an error during printout of the ultrasound ordered. For unknown reason , the order did not print at time of order. This was not obtained originally, explaining the delay. The patient is currently getting a pelvic ultrasound at this time. 3:55 p.m. Case discussed with Dr. Marcos. He informed me that the findings of the pelvic ultrasound did not reveal anything to suggest torsion. The right ovary is well visualized and no vaginal with good flow. The left ovary is only visualized transabdominally, thus flow was not obtained. There is nothing to suggest torsion. This was compared to CT scan which also does not provide any evidence to suggest torsion. 4:15 p.m. I have re-evaluated the patient and discussed the case with the for 15 minutes. She is feeling better at this time. She is feeling more comfortable and resting pressure that the findings today did not suggest any acute infection or recurrence of the abscess. I did offer and recommend admission for pain control , although I do feel she is stable for discharge home. She is required multiple doses of IV pain medication but is feeling much better at this time. She actually wants to go home and has declined admission. We discussed the risks and benefits and she is comfortable with assuming his wrist. She knows that she may need to return to the emergency department should her symptoms worsen, her pain become intolerable, she developed any fever. She wants to be discharged home to see if she will improve at home with pain medication. She has an appointment with GI physician next week. 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 She will return here for any worsening of her symptoms, fever, chills, nausea, vomiting or diarrhea. She is discharged home stable condition. ED Precautions: Worsening pain. Fever. Bloody stools. Bloody emesis. Constipation or diarrhea. SUPERVISION: Patient was evaluated in conjunction with the supervising physician. Please see their note for details. (Archie Rosario) Constitutional: Initial Vital Signs Temperature (C) 98.1 F 01/18/17 10:19 Heart Rate 94 01/18/17 10:19 Respiratory Rate 18 01/18/17 10:19 Blood Pressure 111/69 01/18/17 10:19 O2 Sat (%) 98 01/18/17 10:19 O2 Delivery Mode Room Air Allergies/Adverse Reactions: naproxen Allergy (Intermediate, Verified 01/18/17 10:18) Dyspnea Home Medications: Medication Instructions Recorded Herbals/Supplements -Info Only 1 ea PO DAILY 01/07/17 Ibuprofen [Motrin (*)] 400 mg PO PRN PRN 01/07/17 Methylnaltrexone [place] [Relistor] 300 mg PO DAILY PRN 01/07/17 Multivitamins [Multivitamin (*)] 1 each PO DAILY 01/07/17 Progesterone, Micronized 100 mg PO HS 01/07/17 [Progesterone] clonazePAM [Klonopin (*)] 0.5 mg PO DAILY PRN 01/07/17 Acetaminophen [Tylenol 325mg (*)] 325 - 650 mg PO Q4HRS PRN #0 tab 01/12/17 Amoxicillin/Clavulanate Pot 875 mg PO BID #14 tab 01/12/17 [Augmentin 875 MG TAB (*)] oxyCODONE IR [Oxycodone Ir (*)] 5 - 10 mg PO Q4 PRN #30 tab 01/12/17 Ondansetron Odt [Zofran Odt 4 mg 4 mg PO Q6 PRN #12 tab 01/18/17 (*)] oxyCODONE HCL/ACETAMINOPHEN 1 each PO Q4-6PRN PRN #20 tablet 01/18/17 [Percocet 5-325 mg Tablet] Medical Decision Making - Diagnostics Imaging Results: Imaging Impressions Abdomen CT 01/18/17 10:54 Impression: 1. Stable residual hypodense phlegmon versus collection in the left lower pelvis presacral position and location of previous drainage catheter. 2. Stable presacral soft tissue thickening. This could be postoperative. 3. Stable hemangioma left lobe liver lateral segment near the dome. 4. Moderate constipation. Findings discussed with Archie Rosario PAC at 12:37 hour, 01/18/2017. Pelvic/Renal Ultrasound 01/18/17 14:45 Impression: 1. Normal-appearing bilateral ovaries without evidence of adnexal masses, adjacent free fluid, or definite ovarian torsion. 2. No uterine leiomyomata. 3. Limited endovaginal images of the left ovary without abnormalities on the transabdominal images. Findings and recommendations discussed with Emergency Department physician, Archie Rosario, PAC, at 1602 hour, 01/18/2017. Final report concurs with initial preliminary interpretation. Other Provider: PHYSICIAN DOCUMENTATION: The patient was evaluated and managed by the Physician Product Safety Manager and myself. I have reviewed the chart and agree with the findings and plan of care as documented. In addition, I examined the patient myself at 1437. History confirmed as left-sided abdominal pain, history of pelvic abscess, nontraumatic start. Physical findings as follows: Some left lower quadrant tenderness but no rebound or guarding. Discussed plan in detail. If ultrasound normal, plan to discharge if she is comfortable as far as pain control, will admit if she still requires IV medications. Questions answered from both patient and her father. She does have gastroenterology follow-up next week and with Rohit Morocho for her endometriosis at the end of February. I am the secondary supervising physician. (Carlton Gilbert) - Data Points Laboratory Results: Laboratory Results 01/18/17 11:10 01/18/17 11:10 01/18/17 01/18/17 01/18/17 11:10 11:10 11:10 WBC 6.83 10^3/uL 10^3/uL (3.80-9.50) RBC 4.44 10^6/uL 10^6/uL (4.18-5.33) Hgb 13.7 g/dL g/dL (12.6-16.3) Hct 41.8 % % (38.0-47.0) MCV 94.1 fL fL (81.5-99.8) MCH 30.9 pg pg (27.9-34.1) MCHC 32.8 g/dL g/dL (32.4-36.7) RDW 12.9 % % (11.5-15.2) Plt Count 285 10^3/uL 10^3/uL (150-400) MPV 10.4 fL fL (8.7-11.7) Neut % (Auto) 57.0 % % (39.3-74.2) Lymph % (Auto) 34.4 % % (15.0-45.0) [place] % (Auto) 6.9 % % (4.5-13.0) Eos % (Auto) 0.9 % % (0.6-7.6) Baso % (Auto) 0.4 % % (0.3-1.7) Nucleat RBC Rel Count 0.0 % % (0.0-0.2) Absolute Neuts (auto) 3.89 10^3/uL 10^3/uL (1.70-6.50) Absolute Lymphs (auto) 2.35 10^3/uL 10^3/uL (1.00-3.00) Absolute Monos (auto) 0.47 10^3/uL 10^3/uL (0.30-0.80) Absolute Eos (auto) 0.06 10^3/uL 10^3/uL (0.03-0.40) Absolute Basos (auto) 0.03 10^3/uL 10^3/uL (0.02-0.10) Absolute Nucleated RBC 0.00 10^3/uL 10^3/uL (0-0.01) Immature Gran % 0.4 % % (0.0-1.1) Immature Gran # 0.03 10^3/uL 10^3/uL (0.00-0.10) Sodium 143 mEq/L mEq/L (134-144) Potassium 4.2 mEq/L mEq/L (3.5-5.2) Chloride 103 mEq/L mEq/L (97-110) Carbon Dioxide 26 mEq/l mEq/l (22-31) Anion Gap 14 mEq/L mEq/L (8-16) BUN 6 mg/dL L mg/dL (7-23) Creatinine 0.6 mg/dL mg/dL (0.6-1.0) Estimated GFR > 60 Glucose 84 mg/dL mg/dL (70-100) Calcium 10.3 mg/dL mg/dL (8.5-10.4) Lipase 125.0 IU/L IU/L (23-300) Beta HCG, Qual NEGATIVE Medications Given: Discontinued Medications Hydromorphone HCl (Dilaudid) 1 mg IVP EDNOW ONE Stop: 01/18/17 11:55 Last Admin: 01/18/17 12:00 Dose: 1 mg Hydromorphone HCl (Dilaudid) 1 mg IVP EDNOW ONE Stop: 01/18/17 13:06 Last Admin: 01/18/17 13:14 Dose: 1 mg Sodium Chloride (Ns) 1,000 mls @ 0 mls/hr IV ONCE ONE PRN Reason: Wide Open Stop: 01/18/17 10:56 Last Admin: 01/18/17 11:18 Dose: 1,000 mls Morphine Sulfate (Morphine) 6 mg IVP EDNOW ONE Stop: 01/18/17 10:56 Last Admin: 01/18/17 11:18 Dose: 6 mg Ondansetron HCl (Zofran) 4 mg IVP EDNOW ONE Stop: 01/18/17 10:56 Last Admin: 01/18/17 11:18 Dose: 4 mg Departure - Departure Disposition: Home, Routine, Self-Care Clinical Impression: Pelvic pain Condition: Good Instructions: Pelvic Pain in Women (ED) Additional Instructions: Follow up with established physicians for further care. Return to ER for worsening symptoms, fever, chills, nausea, vomiting. Referrals: NONE *PRIMARY CARE P,. [Primary Care Provider] - As per Instructions Italo Morocho MD [Medical Doctor] - As per Instructions Prescriptions: Ondansetron Odt [Zofran Odt 4 mg (*)] 4 mg PO Q6 PRN #12 tab PRN Reason: Nausea/Vomiting, Use 1st oxyCODONE HCL/ACETAMINOPHEN [Percocet 5-325 mg Tablet] 1 each PO Q4-6PRN PRN # 20 tablet PRN Reason: Pain, Breakthrough
[2017-01-18 15:44] VITALS: RESP 16; TEMP 98.1
[2017-01-18 16:40] VITALS: BP 102/65; PULSE 85; O2SAT 98
== END 2017-01-18 16:47 | disposition home or self-care (01) ==
DX: R10.2 Pelvic and perineal pain (principal)
CPT/HCPCS: 96374; J1170; J2405; Q9967

== ENCOUNTER 2017-01-21 11:57 | Inpatient (IN) | payer MEDICAID ==
[2017-01-21] MEDS ORDERED: HYDROmorphONE/DILAUDID 1 MG/ML SYR ONE ×2 (12:29→15:41)
[2017-01-21] MEDS ORDERED: HYDROmorphONE/DILAUDID 1 MG/ML SYR IVP ONE ×2 (12:34→15:30)
--- NOTE | 2017-01-21 12:49 | EDPHY ---
H & P Stated Complaint: pelvic pain Time Seen by Provider: 01/21/17 12:48 HPI/ROS: CHIEF COMPLAINT: Chronic pelvic pain HISTORY OF PRESENT ILLNESS: The patient presents to the ED with worsening chronic pelvic pain. The patient has a history of a pelvic abscess which was treated at the end of January with IR drainage. This abscess resulted from a procedure she had for endometriosis performed in [place]. Since the patient' s discharge from the hospital she has had several ED visits. She has had [address] scans and 1 abdominal ultrasound performed for evaluation of her pelvic pain. The patient is noted to have a persistent stable phlegmon in her pelvis. The patient denies fever. She denies diarrhea. She denies additional complaints. The patient does complain of pain which is not alleviated with Percocet. REVIEW OF SYSTEMS: A comprehensive 10 point review of systems is otherwise negative aside from elements mentioned in the history of present illness. Source: Patient Exam Limitations: No limitations - Personal History LMP (Females 10-55): 15-21 Days Ago - Medical/Surgical History Hx Asthma: No Hx Chronic Respiratory Disease: No Hx Diabetes: No Hx Cardiac Disease: No Hx Renal Disease: No Hx Cirrhosis: No Hx Alcoholism: No Hx HIV/AIDS: No Hx Splenectomy or Spleen Trauma: No Other PMH: endometriosis. chronic pain (under pain mgt care),colon resection - Social History Smoking Status: Never smoked - Physical Exam Exam: General Appearance: Alert, no distress Eyes: Pupils equal and round no pallor or injection ENT, Mouth: Mucous membranes moist Respiratory: There are no retractions, lungs are clear to auscultation Cardiovascular: Regular rate and rhythm Gastrointestinal: Tenderness to palpation left lower quadrant Neurological: A&O, normal motor function, normal sensory exam, normal cranial nerves Skin: Warm and dry, no rashes Musculoskeletal: Neck is supple nontender Extremities: symmetrical, full range of motion Constitutional: Initial Vital Signs Temperature (C) 36.4 C 01/21/17 11:58 Heart Rate 87 01/21/17 11:58 Blood Pressure 107/80 01/21/17 11:58 O2 Sat (%) 96 01/21/17 11:58 O2 Delivery Mode Room Air Allergies/Adverse Reactions: naproxen Allergy (Intermediate, Verified 01/18/17 10:18) Dyspnea Home Medications: Medication Instructions Recorded Herbals/Supplements -Info Only 1 ea PO DAILY 01/07/17 Ibuprofen [Motrin (*)] 400 mg PO PRN PRN 01/07/17 Methylnaltrexone [place] [Relistor] 300 mg PO DAILY PRN 01/07/17 Multivitamins [Multivitamin (*)] 1 each PO DAILY 01/07/17 Progesterone, Micronized 100 mg PO HS 01/07/17 [Progesterone] clonazePAM [Klonopin (*)] 0.5 mg PO DAILY PRN 01/07/17 Acetaminophen [Tylenol 325mg (*)] 325 - 650 mg PO Q4HRS PRN #0 tab 01/12/17 Amoxicillin/Clavulanate Pot 875 mg PO BID #14 tab 01/12/17 [Augmentin 875 MG TAB (*)] oxyCODONE IR [Oxycodone Ir (*)] 5 - 10 mg PO Q4 PRN #30 tab 01/12/17 Ondansetron Odt [Zofran Odt 4 mg 4 mg PO Q6 PRN #12 tab 01/18/17 (*)] oxyCODONE HCL/ACETAMINOPHEN 1 each PO Q4-6PRN PRN #20 tablet 01/18/17 [Percocet 5-325 mg Tablet] Medical Decision Making ED Course/Re-evaluation: The patient presents to the ED with ongoing pelvic pain. I consulted with Dr. Roberto Mosley evaluated the patient in the ED. He is recommending the patient be admitted to the hospital for IR drainage of the residual abscess. He has requested the patient be admitted to the medicine service. I consulted with Dr. Marielena Brumfield from interventional radiology who will evaluate the patient. She is asked the patient be kept NPO after midnight. The patient is afebrile in the ED. I did give the patient 30 mg of IV Toradol. Consultation was made with the hospitalist service. The patient will be admitted by Dr. Reginald Wade. Differential Diagnosis: Differential diagnosis considered includes pelvic abscess, chronic pain syndrome , endometriosis - Data Points Laboratory Results: Laboratory Results 01/21/17 12:30 01/21/17 12:30 01/21/17 01/21/17 12:30 12:30 WBC 5.72 10^3/uL 10^3/uL (3.80-9.50) RBC 4.37 10^6/uL 10^6/uL (4.18-5.33) Hgb 13.3 g/dL g/dL (12.6-16.3) Hct 40.7 % % (38.0-47.0) MCV 93.1 fL fL (81.5-99.8) MCH 30.4 pg pg (27.9-34.1) MCHC 32.7 g/dL g/dL (32.4-36.7) RDW 13.0 % % (11.5-15.2) Plt Count 228 10^3/uL 10^3/uL (150-400) MPV 10.7 fL fL (8.7-11.7) Neut % (Auto) 55.4 % % (39.3-74.2) Lymph % (Auto) 36.5 % % (15.0-45.0) [place] % (Auto) 7.0 % % (4.5-13.0) Eos % (Auto) 0.5 % L % (0.6-7.6) Baso % (Auto) 0.3 % % (0.3-1.7) Nucleat RBC Rel Count 0.0 % % (0.0-0.2) Absolute Neuts (auto) 3.16 10^3/uL 10^3/uL (1.70-6.50) Absolute Lymphs (auto) 2.09 10^3/uL 10^3/uL (1.00-3.00) Absolute Monos (auto) 0.40 10^3/uL 10^3/uL (0.30-0.80) Absolute Eos (auto) 0.03 10^3/uL 10^3/uL (0.03-0.40) Absolute Basos (auto) 0.02 10^3/uL 10^3/uL (0.02-0.10) Absolute Nucleated RBC 0.00 10^3/uL 10^3/uL (0-0.01) Immature Gran % 0.3 % % (0.0-1.1) Immature Gran # 0.02 10^3/uL 10^3/uL (0.00-0.10) Sodium 140 mEq/L mEq/L (134-144) Potassium 3.9 mEq/L mEq/L (3.5-5.2) Chloride 103 mEq/L mEq/L (97-110) Carbon Dioxide 27 mEq/l mEq/l (22-31) Anion Gap 10 mEq/L mEq/L (8-16) BUN 8 mg/dL mg/dL (7-23) Creatinine 0.6 mg/dL mg/dL (0.6-1.0) Estimated GFR > 60 Glucose 91 mg/dL mg/dL (70-100) Calcium 9.6 mg/dL mg/dL (8.5-10.4) Medications Given: Discontinued Medications Hydromorphone HCl (Dilaudid) 0 mg IVP EDNOW ONE Stop: 01/21/17 12:35 Last Admin: 01/21/17 12:35 Dose: 1 mg Departure - Departure Referrals: NONE *PRIMARY CARE P,. [Primary Care Provider] - As per Instructions
[2017-01-21 13:04] LABS: % IMMATURE GRANULYOCYTES 0.3 % (0.0-1.1); ABSOLUTE IMMATURE GRANULOCYTES 0.02 10^3/uL (0.00-0.10); ADD DIFF? NO; ADD MORPH? NO; ADD SCAN? NO; ATYPICAL LYMPHOCYTE FLAG 50 (0-99); FRAGMENT RBC FLAG 0 (0-99); HEMATOCRIT 40.7 % (38.0-47.0); HEMOGLOBIN 13.3 g/dL (12.6-16.3); LEFT SHIFT FLG 0 (0-99); LIPEMIA HEMOLYSIS FLAG 80 (0-99); MEAN CELL HEMOGLOBIN 30.4 pg (27.9-34.1); MEAN CELL HEMOGLOBIN CONCENTR. 32.7 g/dL (32.4-36.7); MEAN CELL VOLUME 93.1 fL (81.5-99.8); MEAN PLATELET VOLUME 10.7 fL (8.7-11.7); PLATELET CLUMPS FLAG 20 (0-99); PLATELET COUNT 228 10^3/uL (150-400); RED BLOOD CELL COUNT 4.37 10^6/uL (4.18-5.33)
[2017-01-21 13:10] LABS: ANION GAP 10 mEq/L (8-16); CALCIUM 9.6 mg/dL (8.5-10.4); CARBON DIOXIDE 27 mEq/l (22-31); CHLORIDE 103 mEq/L (97-110); CREATININE 0.6 mg/dL (0.6-1.0); GLOMERULAR FILTRATION RATE > 60; GLUCOSE 91 mg/dL (70-100); POTASSIUM 3.9 mEq/L (3.5-5.2); SODIUM 140 mEq/L (134-144)
[2017-01-21] MEDS ORDERED: KETOROLAC 30 MG/1 ML SDV IVP ONE (13:38)
[2017-01-21] MEDS ORDERED: LORazepam 2 MG/ML INJ IVP PRN (16:06)
[2017-01-21] MEDS ORDERED: ACETAMINOPHEN 325 MG TAB PO PRN (16:06)
[2017-01-21] MEDS ORDERED: NS 1,000 ML IV SCH (16:15)
[2017-01-21] MEDS: LORazepam 1 MG TAB PO PRN (16:51)
--- NOTE | 2017-01-21 16:53 | PDGENHP ---
History and Physical History and Physical: HISTORY AND PHYSICAL CC:Left pelvic pain HISTORY: This patient comes into the emergency room complaining of left pelvic pain. This comes up after just recently having an abscess drained here. The patient has a long history of endometriosis and has had 4 surgeries for that but has ongoing chronic pelvic pain. Her most recent surgery was in [place] on January 03 of this year. This was a somewhat complicated surgery in that she had endometrial implants deeply imbedded in the bowel wall in the sigmoid colon and her surgery involved a 10 cm sigmoid colectomy. There were no apparent complications at the time of the surgery and she was recovering nicely initially. However she came to this hospital on January 07 with pelvic pain sweats and rigors. On CT scan she had a complicated abscess with septation in the left low pelvis. This was treated with percutaneous drain tube placement with CT guidance and antibiotic therapy. The patient improved fairly nicely and had her drain removed when it stopped removing fluid. She was discharged on January 12 with a prescription for Augmentin. She came back here however several days ago with recurrent pelvic pain. A CT of the abdomen pelvis was done again and showed still some fluid present but it did not appear changed from the CT scan done at the time of her discharge. She would had been given some pain medicine in the ER and felt much better and did go home. However her pain is persisted and then last night her pain became much worse. She has had some sweats but no rigors and has not checked her temperature. She has been able to eat well has no nausea or vomiting. She is moving her bowels although says her bowel function has been irregular ever since her partial colectomy in December. Her last bowel movement was early this morning. There is no blood in her stools and she does not have any anal or rectal pain. In terms of location of her pain she describes as being in the low left abdominal pelvic area above the inguinal ligament. There is also some discomfort lateral to the tailbone on the left side. ROS: A comprehensive 10 system review revealed no other significant findings PAST MEDICAL HISTORY: Chronic pelvic pain Endometriosis For laparoscopic surgeries for endometriosis including the last 1 described above Anxiety disorder FAMILY MEDICAL HISTORY: there are no particularly relevant medical issues in the family and she is not aware of any really significant medical health issues in the family SOCIAL HISTORY: nonsmoker does not use significant alcohol Partnered Lives here in [place] MEDICATIONS: The patients list has been reconciled by our clinical pharmacist in the EMR. I have reviewed the list and ordered appropriate medicines. PHYSICAL EXAMINATION: Vital Signs: stable without fever Examination: General: alert, oriented, good mentation, though she is fairly anxious about her current situation and being back in the hospital Skin: warm, dry, good color, no rash HEENT: normal Neck: no mass or jvd Resps: relaxed Lungs: clear breath sounds Heart: regular, no murmur Abdomen: soft, nondistended, +BS, no mass; there is very mild diffuse tenderness with more significant tenderness in the left pelvis, but with no rebound or other peritoneal signs Upper Extremities: normal Lower Extremities: no edema, warm No Bleeding or bruising 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 I can easily identify an abscess in the low left pelvis that has at least 2 pockets filled with fluid no air, a septum clearly them. She did have a percutaneous drain placed in the larger of these 2 pockets and at the time of its removal it appeared that large pocket had been completely drained fluid and the smaller pocket unchanged ASSESSMENT: # PERSISTENT PELVIC ABSCESS AFTER A PRIOR PARTIAL SIGMOID COLECTOMY FOR ENDOMETRIOSIS DONE ELSEWHERE IN DECEMBER. THE LOCATION OF THIS IS LIKELY AT OR NEAR THE ANASTOMOTIC SITE # ANXIETY DISORDER. The patient is that states to me that she anticipate she is going to have a lot of anxiety that will make it hard for her to get through any further imaging ordered attempted drainage procedures and she requests that we treat her with medications for this. I will review with the imaging group. PLANS: -Admission to hospital -Empiric coverage for bowel diya with IV ertapenem while were waiting to trying resemble her abscess and get cultures again -Pain and anxiety management -Doctor mouth interventional Radiology has been notified and plans to image the patient with the intention of most likely placing another percutaneous drain in the morning depending on the results of imaging I have reviewed the patient's case in detail with Dr. Dagoberto Saldana I have reviewed the patient's past medical records as part of this assessment, including previous hospital admission records and CT scans as well as ER visit records
[2017-01-21] MEDS: OXYCODONE/APAP 5/325 TAB PO PRN ×2 (17:18→21:20)
[2017-01-21] MEDS: PROGESTERONE,MICR 100 MG CAP PO SCH (21:22)
[2017-01-21] MEDS: ERTAPENEM 1 GM in NS 100 ML IV SCH (21:22)
[2017-01-21] MEDS: ONDANSETRON 4 MG/2 ML VIAL IVP PRN (22:11)
[2017-01-22] MEDS: HYDROmorphONE/DILAUDID 1 MG/ML SYR IVP PRN ×4 (00:32→10:46)
[2017-01-22] MEDS: ONDANSETRON 4 MG/2 ML VIAL IVP PRN (04:15)
[2017-01-22] MEDS ORDERED: DEXMEDETOMIDINE HCL 200 MCG in NS 50 ML IV ONE (10:30)
[2017-01-22] MEDS: MULTIVITAMINS 1 EACH TAB PO SCH (11:20)
[2017-01-22] MEDS: clonazePAM 0.5 MG TAB PO SCH (11:20)
[2017-01-22] MEDS ORDERED: MIDAZOLAM 2 MG/2 ML VIAL ONE (11:40)
[2017-01-22] MEDS ORDERED: FLUMAZENIL 0.5 MG/5 ML MDV IVP ONE (11:40)
[2017-01-22] MEDS ORDERED: NALOXONE HCL 0.4 MG/ML INJ ONE (11:40)
[2017-01-22] MEDS ORDERED: fentaNYL 100 MCG/2 ML INJ ONE (11:40)
[2017-01-22] MEDS ORDERED: IOPAMIDOL (ISOVUE-300) 100 ML BTL IV ONE (12:08)
[2017-01-22] MEDS ORDERED: HYDROmorphONE/DILAUDID 1 MG/ML SYR ONE (13:03)
[2017-01-22] MEDS: ERTAPENEM 1 GM in NS 100 ML IV SCH (14:10)
--- NOTE | 2017-01-22 14:12 | POSTOPPROG ---
Post Op Note Date of Operation: 01/22/17 Surgeon: Coco Brumfield Anesthesia: IV Sedation Pre-op Diagnosis: pelvic abscess Post-op Diagnosis: same Indication: severe pain Procedure: abscess aspiration by CT guidance Findings: <1cc fluid aspirated. Cavity irrigated. Inf/Abcess present in the surg proc area at time of surgery?: No Depth: Superfical (Skin SQ) EBL: Minimal
[2017-01-22] MEDS: OXYCODONE/APAP 5/325 TAB PO PRN ×3 (15:03→22:03)
--- NOTE | 2017-01-22 15:23 | HOSPPROG ---
Hospitalist Progress Note Assessment/Plan: DIAGNOSES: # PERSISTENT PELVIC ABSCESS AFTER A PRIOR PARTIAL SIGMOID COLECTOMY FOR ENDOMETRIOSIS DONE ELSEWHERE IN DECEMBER. THE LOCATION OF THIS IS LIKELY AT OR NEAR THE ANASTOMOTIC SITE # ANXIETY DISORDER. # CHRONIC ABDOMINAL PAIN RELATED TO ENDOMETRIOSIS, STATUS POST 4 SURGERIES FOR THIS INCLUDING A PARTIAL COLECTOMY PLANS: -Continue empiric therapy- with ertapenem at this time -Await culture from fluid -Will review her case with Infectious Disease regarding outpatient antibiotic therapy as I anticipate she will probably be able to discharge in 1-2 days SUBJECTIVE: still with the same pain. She has been through her drainage procedure today with 5 cc of purulent fluid removed from her abscess. She tolerated this well and no new symptoms or complications. OBJECTIVE Vitals reviewed: stable without fever Exam: alert oriented skin warm dry color ok resps not labored lungs clear BSs heart regular abd soft nondistended nontender, bowel sounds present limbs warm, no edema iv site ok Objective: Vital Signs Temp Pulse Resp BP Pulse Ox 36.9 C 71 18 99/67 L 95 01/22/17 15:11 01/22/17 15:11 01/22/17 13:31 01/22/17 15:11 01/22/17 15:11 01/21/17 01/22/17 01/23/17 06:59 06:59 06:59 Intake Total 1000 300 Output Total 0 Balance 1000 300 ICD10 Worksheet Patient Problems: Problems Problem Status Onset Postoperative abscess Acute
[2017-01-22] MEDS: ONDANSETRON DISINTEGRATING 4 MG TAB PO PRN (17:50)
[2017-01-22] MEDS: PROGESTERONE,MICR 100 MG CAP PO SCH (20:12)
[2017-01-23] MEDS: OXYCODONE/APAP 5/325 TAB PO PRN ×6 (02:02→21:42)
[2017-01-23] MEDS: clonazePAM 0.5 MG TAB PO SCH (08:34)
[2017-01-23] MEDS: ERTAPENEM 1 GM in NS 100 ML IV SCH (08:35)
[2017-01-23] MEDS: IBUPROFEN 200 MG TAB PO PRN ×3 (08:43→21:43)
[2017-01-23] MEDS: DOCUSATE SODIUM 100 MG CAP PO SCH ×2 (08:43→19:45)
[2017-01-23] MEDS: ONDANSETRON DISINTEGRATING 4 MG TAB PO PRN (15:11)
--- NOTE | 2017-01-23 16:05 | HOSPPROG ---
Hospitalist Progress Note Assessment/Plan: DIAGNOSES: # PERSISTENT PELVIC ABSCESS AND PAIN AFTER A PRIOR DRAINAGE AND COURSE OF ABX, FOLLOWING PARTIAL SIGMOID COLECTOMY FOR ENDOMETRIOSIS DONE ELSEWHERE IN DECEMBER. THE LOCATION OF THIS IS LIKELY AT OR NEAR THE ANASTOMOTIC SITE # ANXIETY DISORDER. # CHRONIC PELVIC PAIN DIAGNOSED DUE TO ENDOMETRIOSIS, STATUS POST 4 SURGERIES FOR THIS INCLUDING A PARTIAL COLECTOMY Initially seen here she had a septated low pelvic / perirectal abscess with two pockets. The larger pocket was drained with a perc tube placment and is radiologically resolved. The smaller pocket is still present at this admission and was drained by needle 01/[address] Brumfield. PLANS: -Continue empiric therapy with ertapenem at this time -Await culture from fluid -I have reviewed her cultures and imaging results with Dr Mccabe (who had seen her last admit) and Dr Cisneros. The staph epi in the current culture is likely contaminant. Her previous cultures from last admit grew a Bacteroides and rare Propionobacterium acnes. The latter is an unusual intraabdominal pathogen, and with presence of "rare" organisms may also not be a true pathogen. For now will continue IV ertapenam until she is clearly getting improvement in sxs. She can be discharged then on either Augmentin or Cipro/Flagyl. I anticipate she will likely be able to go home 01/24 or 01/25. SUBJECTIVE: this am had increased L pelvic pain, sharp, and not responding very well to analgesics this afternoon somewhat better pain control no fever sxs OBJECTIVE Vitals reviewed: stable without fever Exam: alert oriented skin warm dry color ok resps not labored lungs clear BSs heart regular abd soft nondistended nontender, bowel sounds present limbs warm, no edema iv site ok LAB DATA: wound culture with a staph epi (I reviewed this with Dr Mccabe and Dr Cisneros, who feel this is less likely a true infectious pathogen) Objective: Vital Signs Temp Pulse Resp BP Pulse Ox 36.8 C 86 16 96/59 L 95 01/23/17 12:00 01/23/17 12:00 01/23/17 12:00 01/23/17 12:00 01/23/17 12:00 Microbiology 01/22/17 12:40 Gram Stain - Final Buttock - Aspirate 01/22/17 01/23/17 01/24/17 06:59 06:59 06:59 Intake Total 1000 300 Output Total 0 Balance 1000 300 ICD10 Worksheet Patient Problems: Problems Problem Status Onset Postoperative abscess Acute
[2017-01-23] MEDS: MULTIVITAMINS 1 EACH TAB PO SCH (17:40)
[2017-01-23] MEDS: LORazepam 1 MG TAB PO PRN (19:45)
[2017-01-23] MEDS: PROGESTERONE,MICR 100 MG CAP PO SCH (21:42)
[2017-01-24] MEDS: OXYCODONE/APAP 5/325 TAB PO PRN ×6 (01:41→23:18)
[2017-01-24] MEDS: ERTAPENEM 1 GM in NS 100 ML IV SCH (09:38)
[2017-01-24] MEDS: DOCUSATE SODIUM 100 MG CAP PO SCH ×2 (09:38→21:00)
[2017-01-24] MEDS: MULTIVITAMINS 1 EACH TAB PO SCH (09:38)
[2017-01-24 10:07] VITALS: RESP 16
[2017-01-24] MEDS: clonazePAM 0.5 MG TAB PO SCH (10:35)
[2017-01-24] MEDS: IBUPROFEN 200 MG TAB PO PRN ×2 (14:49→21:15)
--- NOTE | 2017-01-24 16:29 | HOSPPROG ---
Hospitalist Progress Note Assessment/Plan: 26-year-old female with known long history of endometriosis who was admitted due to a pelvic pain. She was thought to have a pelvic abscess and has undergone drainage now twice historically. On this admission she had a percutaneous drainage by IR resulting in the finding of 1 cc of fluid. Patient consistently asks for pain medication. Patient is new to me today - persistent pelvic pain with possible pelvic abscess. Patient was originally seen on 01/07 and was found to have a septated low pelvic perirectal abscess with 2 pockets. The largest pocket was drained with a percutaneous tube and has resolved radiologically. The larger pocket was drained on 01/[address] Brumfield resulting in 1 cc of fluid. Previous cultures grew Bacteroides and proprionobacterium. she is currently receiving Invanz. Per ID notes she can be discharged on oral Augmentin or Cipro/Flagyl. - Chronic pain syndrome. Patient recently moved from [place] to the [place] area because her father lives here and she was no longer able to work in 4 to because of the pain. She was seen once here in [place] by Dr. Vann At at [facility]. He did not prescribe narcotics as she had a prescription of Percocet from [place]. It is planned that she will follow up with Dr. Vann. Plan: Limit use of Dilaudid narcotic and changed to oral narcotic pain medication. - Patient has been afebrile with a normal white count. Will repeat WBC in the morning and plan a disposition tomorrow to home with follow-up with Pain Management at the [facility]. she is also planning a follow-up with Dr. Morocho an endometriosis specialist in [place]. Plan: Discharge on 01/25. Follow up per above. I spoke with Dr. Vann should at [facility] and confirm these findings. Time: 45 minutes Subjective: reports she is still having very significant pain and requesting Dilaudid. During my exam the patient could move easily about a without any signs of pain and does not appear to be in any significant pain. Denies fever chills nausea vomiting or chest pain or abdominal pain. the pain she reports is deep in the pelvis. Objective: Vital Signs Temp Pulse Resp BP Pulse Ox 36.6 C 71 16 115/67 96 01/24/17 15:25 01/24/17 15:25 01/24/17 15:25 01/24/17 15:25 01/24/17 15:25 Microbiology 01/22/17 12:40 Gram Stain - Final Buttock - Aspirate 01/23/17 01/24/17 01/25/17 05:59 05:59 05:59 Intake Total 300 Output Total 0 Balance 300 - Time Spent With Patient Time Spent with Patient: greater than 35 minutes Time Spent with Patient: Greater than 35 minutes spent on this patients care, greater than 50% of time spent counseling, educating, and coordinating care regarding the above mentioned plan. - Pending Discharge Pending Discharge Within 24 Hours: Yes Pending Discharge Date: 01/25/17 Pending Discharge Time: 11:00 - Physical Exam Constitutional: no apparent distress Eyes: PERRL Ears, Nose, Mouth, Throat: moist mucous membranes Cardiovascular: regular rate and rhythym Respiratory: no respiratory distress, no rales or rhonchi Gastrointestinal: normoactive bowel sounds, soft, non-tender abdomen, no palpable masses, other ( Possible tenderness in the left lower quadrant although it was difficult to reproduce on repeat examinaions.) Skin: other ( The area of drainage appears to be healing well without cellulitis inflammation or induration.) Musculoskeletal: full muscle strength Neurologic: AAOx3, CN II-XII Intact Psychiatric: interacting appropriately ICD10 Worksheet Patient Problems: Problems Problem Status Onset Postoperative abscess Acute
[2017-01-24] MEDS: LORazepam 1 MG TAB PO PRN (21:15)
[2017-01-24] MEDS: PROGESTERONE,MICR 100 MG CAP PO SCH (21:16)
[2017-01-25] MEDS: OXYCODONE/APAP 5/325 TAB PO PRN ×3 (03:16→11:16)
[2017-01-25] MEDS: IBUPROFEN 200 MG TAB PO PRN (03:16)
[2017-01-25 05:45] VITALS: O2SAT 96
[2017-01-25 06:29] LABS: % IMMATURE GRANULYOCYTES 0.4 % (0.0-1.1); ABSOLUTE IMMATURE GRANULOCYTES 0.02 10^3/uL (0.00-0.10); ADD DIFF? NO; ADD MORPH? NO; ADD SCAN? NO; ATYPICAL LYMPHOCYTE FLAG 40 (0-99); FRAGMENT RBC FLAG 0 (0-99); HEMATOCRIT 34.3 % (38.0-47.0); HEMOGLOBIN 11.2 g/dL (12.6-16.3); LEFT SHIFT FLG 0 (0-99); LIPEMIA HEMOLYSIS FLAG 80 (0-99); MEAN CELL HEMOGLOBIN 30.4 pg (27.9-34.1); MEAN CELL HEMOGLOBIN CONCENTR. 32.7 g/dL (32.4-36.7); MEAN PLATELET VOLUME 11.2 fL (8.7-11.7); PLATELET CLUMPS FLAG 0 (0-99); PLATELET COUNT 142 10^3/uL (150-400); RED BLOOD CELL COUNT 3.69 10^6/uL (4.18-5.33); RED CELL DISTRIBUTION WIDTH 12.9 % (11.5-15.2)
[2017-01-25 09:18] VITALS: BP 95/66; PULSE 70; TEMP 98.3
--- NOTE | 2017-01-25 10:05 | GDS ---
[f rep st] DISCHARGE SUMMARY NEW AND ACUTE DIAGNOSES ON THIS ADMISSION: 1. Pelvic abscess, status post percutaneous drainage. 2. History of a prior pelvic abscess, which is now resolving. 3. Stage IV endometriosis, with chronic pelvic pain. 4. Pain management through Dr. Vann at [facility] here in [place]. 5. Narcotic dependence for pain management. CHRONIC DIAGNOSES: 1. Stage IV endometriosis. 2. Chronic pelvic pain. CONSULTATIONS: None. PROCEDURES: Abscess drainage CT was performed, resulted in 1 cc of serosanguineous fluid. CT of the pelvis, done on 01/22, shows interval decrease in the size of a residual fluid collection of the left presacral space. This CT showed that the prior abscess site was decreasing in size. SIGNIFICANT LABORATORY FINDINGS: The buttocks aspiration resulted in growing Staphylococcus coag-negative. The prior culture results from 01 08 grew Bacteroides vulgatus, and Propionibacterium acnes. A urine culture from 01/07, on a previous admission, grew Enterococcus faecalis, thought by ID at that time to be a contaminant. HOSPITAL COURSE: This is a 26-year-old female with known stage IV endometriosis , who most recently moved here to [place] in August of 2016. She had been seen in the emergency department in August for pain, and was given a prescription of Percocet. In November, she had pelvic surgery by a physician in [place], [place], a Dr. Goncalves. There, a sigmoid colectomy was performed. She then presented to this facility on 01/07 with fever and chills, was found to have a left pelvic abscess, which was drained, resulting in mixed culture results. She was then discharged, and apparently doing well, with a prescription of Percocet, but then returned on 01/[address] scan showed that the abscess pocket was decreasing in size, and a small residual area was then drained percutaneously, resulting in 1 cc of fluid, which grew Staphylococcus coag-negative. She received 4 days of IV Invanz, was afebrile, and had a normal white count during that time. She continued to complain of pain. Her Dilaudid was stopped and she maintained pain at the level of approximately 4 on Percocet tablets. I spoke with Dr. Vann at the [facility], who concurred that he would prefer to manage her without the use of narcotics. She has seen him once before, and will be seeing him in the future. Records were sought from [facility], but have not arrived. I have had several conversations with the young lady regarding management of this pain with non narcotic medications, and she concurs with this effort. Upon discharge, she was afebrile, had a normal white count, and had very minimal left pelvic pain, and the buttocks drainage site was healing well. DISCHARGE MEDICATIONS: Her usual medications will be continued and are as follows: Clonazepam 0.5 mg p.o. daily, multivitamin daily, progesterone 100 mg p.o. q.h.s., Tylenol 325 to 650 mg p.o. q.4 hours p.r.n. pain. A new medication , though also an existing medication form, will be refilled, which is Percocet 5 /325 mg tablets #10 no refills 1-2 p.o. q.4-6h p.r.n. pain. PLAN: The patient is discharged to home in good condition. Her diet will be unrestricted. I have encouraged her to increase her activity. She is to follow up with Dr. Vann at the [facility] within the next week. Dr. Vann's phone number is [phone]. He is at [facility]. She will also see a Dr. Morocho, an endometriosis specialist, in [place]. She has his name and number and will be making an appointment. A PCP in the [facility] will be given. Time: 55 minutes /[id number]/MODL MTDD
[2017-01-25] MEDS: MULTIVITAMINS 1 EACH TAB PO SCH (10:20)
[2017-01-25] MEDS: clonazePAM 0.5 MG TAB PO SCH (10:20)
[2017-01-25] MEDS: DOCUSATE SODIUM 100 MG CAP PO SCH (10:20)
--- NOTE | 2017-01-25 14:22 | EDPHY ---
ED Progress Note Narrative: I received a phone call from the [facility] pharmacist regarding this patient 's excessive narcotic prescriptions. Multiple prescriptions from multiple providers. I reviewed her chart and found that she has had a complicated recent history including a postoperative pelvic abscess. For the prescription written by Archie goodman, I authorized the pharmacist to give her a total of 10 Percocet tablets instead of 20 Percocet. If this pt returns to the ED for persistent pelvic pain, without objective findings, consider treating her pain without narcotics.
== END 2017-01-25 11:30 | disposition home or self-care (01) | DRG 863 ==
LOC: FOB 14:43 → OBSVTOIN 16:06
PROVIDERS: ADMIT Internal Medicine; ATTEND Internal Medicine
PROC: 0W9J30Z Drainage of Pelvic Cavity with Drainage Device, Percutaneous Approach (ICD-10-PCS; principal; 2017-01-22 12:55)
DX: T81.4XXA Infection following a procedure, initial encounter (principal); F11.20 Opioid dependence, uncomplicated; N80.9 Endometriosis, unspecified; G89.29 Other chronic pain; B95.7 Other staphylococcus as the cause of diseases classified elsewhere; F41.9 Anxiety disorder, unspecified
CPT/HCPCS: J1170; J1335; J1885; J2060; J2250; J2310; J2405; J3010; Q9967

== ENCOUNTER 2017-06-08 08:22 | Emergency (ER) | payer MEDICAID ==
[2017-06-08 08:29] VITALS: RESP 18
--- NOTE | 2017-06-08 08:33 | EDPHY ---
HPI/HX/ROS/PE/MDM Narrative: CHIEF COMPLAINT: Chest pain HPI: The patient is a 27-year-old female with a history of stage IV endometriosis with multiple surgeries. She underwent an oophorectomy in April in [place]. She complains of approximately 3-4 days of left-sided chest pain. The pain has been well as constant since onset but is worse with deep breath. She denies fever or productive cough. She also complains of pain behind her left knee that has been present for approximately the same amount of time. She has no history of blood clot. She describes an episode of dyspnea and tachycardia last night that was not relieved Xanax. REVIEW OF SYSTEMS: Aside from elements discussed in the HPI, a comprehensive 10-point review of systems was reviewed and is negative. PMH:Past medical history significant for admission and discharge from this hospital in January 2017 related to recurrent pelvic abscess with percutaneous drain. She has a history of chronic pain related to endometriosis. Prior surgical history includes drainage of pelvic abscess as well as a sigmoid colectomy. SOCIAL HISTORY: Denies alcohol or drug abuse. PHYSICAL EXAM: General:Patient is alert, in no acute distress. ENT:Eyes are normal to inspection. ENT inspection normal. Neck: Normal inspection. Full range of motion. Respiratory:No respiratory distress. Breath sounds normal bilaterally. Cardiovascular: Regular rate and rhythm. Strong peripheral pulses. Normal cap refill. Abdomen:The abdomen is nontender to palpation. There are no peritoneal signs. There are normal bowel sounds. Back: Normal to inspection. No tenderness to palpation. Skin: Normal color. No rash. Warm and dry. Extremities: Normal appearance. Full range of motion. Tenderness to palpation is present in the left popliteal fossa. Neuro: Oriented x3. Normal motor function. Normal sensory function. ED Course: CT chest is negative for PE or other etiology for chest pain. Ultrasound of the left lower extremity is negative for DVT or Damon cyst. MDM: This is a young female who presents with chest pain. We performed an extensive workup including CT of the chest, EKG and ultrasound, all of which are negative. I see no evidence for pneumothorax, pulmonary embolus, pneumonia, thoracic aortic dissection or acute coronary syndrome. I think she is safe for outpatient workup. - Data Points Imaging Results: Imaging Impressions Chest X-Ray 06/08/17 08:45 Impression: Normal. No source for chest pain identified. Chest/Thorax CTA 06/08/17 09:43 Impression: No pulmonary embolism to the segmental level. Dr. Kearney discussed these findings by telephone with Lacho Escobedo MD at 10:18. Extremity Venous Study 06/08/17 10:19 Impression: No evidence of deep vein thrombosis. Findings discussed with Lacho Escobedo MD 06/08/2017 at 10:55. Laboratory Results: Laboratory Results 06/08/17 09:00 06/08/17 09:00 06/08/17 06/08/17 06/08/17 09:00 09:00 09:00 WBC 6.71 10^3/uL 10^3/uL (3.80-9.50) RBC 4.64 10^6/uL 10^6/uL (4.18-5.33) Hgb 15.2 g/dL g/dL (12.6-16.3) Hct 43.4 % % (38.0-47.0) MCV 93.5 fL fL (81.5-99.8) MCH 32.8 pg pg (27.9-34.1) MCHC 35.0 g/dL g/dL (32.4-36.7) RDW 11.9 % % (11.5-15.2) Plt Count 144 10^3/uL L 10^3/uL (150-400) MPV 11.4 fL fL (8.7-11.7) Neut % (Auto) 70.4 % % (39.3-74.2) Lymph % (Auto) 21.9 % % (15.0-45.0) Kimball % (Auto) 6.6 % % (4.5-13.0) Eos % (Auto) 0.4 % L % (0.6-7.6) Baso % (Auto) 0.4 % % (0.3-1.7) Nucleat RBC Rel Count 0.0 % % (0.0-0.2) Absolute Neuts (auto) 4.72 10^3/uL 10^3/uL (1.70-6.50) Absolute Lymphs (auto) 1.47 10^3/uL 10^3/uL (1.00-3.00) Absolute Monos (auto) 0.44 10^3/uL 10^3/uL (0.30-0.80) Absolute Eos (auto) 0.03 10^3/uL 10^3/uL (0.03-0.40) Absolute Basos (auto) 0.03 10^3/uL 10^3/uL (0.02-0.10) Absolute Nucleated RBC 0.00 10^3/uL 10^3/uL (0-0.01) Immature Gran % 0.3 % % (0.0-1.1) Immature Gran # 0.02 10^3/uL 10^3/uL (0.00-0.10) Sodium 140 mEq/L mEq/L (134-144) Potassium 4.1 mEq/L mEq/L (3.5-5.2) Chloride 103 mEq/L mEq/L (97-110) Carbon Dioxide 21 mEq/l L mEq/l (22-31) Anion Gap 16 mEq/L mEq/L (8-16) BUN 11 mg/dL mg/dL (7-23) Creatinine 0.6 mg/dL mg/dL (0.6-1.0) Estimated GFR > 60 Glucose 93 mg/dL mg/dL (70-100) Calcium 9.6 mg/dL mg/dL (8.5-10.4) Troponin I < 0.012 ng/mL ng/mL (0.000-0.034) Beta HCG, Qual NEGATIVE Medications Given: Discontinued Medications Ketorolac Tromethamine (Toradol) 15 mg IVP EDNOW ONE Stop: 06/08/17 10:20 Last Admin: 06/08/17 10:23 Dose: 15 mg General Initial Vital Signs: Initial Vital Signs Temperature (C) 36.7 C 06/08/17 08:26 Heart Rate 94 06/08/17 08:26 Respiratory Rate 18 06/08/17 08:26 Blood Pressure 101/82 H 06/08/17 08:26 O2 Sat (%) 99 06/08/17 08:26 O2 Delivery Mode Room Air Allergies/Adverse Reactions: naproxen Allergy (Intermediate, Verified 06/08/17 08:25) Dyspnea Home Medications: Medication Instructions Recorded Progesterone, Micronized 100 mg PO HS 01/07/17 [Progesterone] oxyCODONE HCL/ACETAMINOPHEN 2 each PO Q4-6PRN PRN #10 tablet 01/25/17 [Percocet 5-325 mg Tablet] GABAPENTIN 06/08/17 Xanax 06/08/17 Departure - Departure Disposition: Home, Routine, Self-Care Clinical Impression: Chest pain Condition: Good Instructions: Chest Pain (ED) Additional Instructions: Follow-up with your primary doctor within 72 hours. Return to the Emergency Department for fever, chest pain, shortness of breath, increasing pain or other worsening of condition. Follow up with a board certified orthodontist for further testing, as soon as possible, within one week. Referrals: DOMINIQUE MAGUIRE [Primary Care Provider] - As per Instructions Rohit Marie MD [Medical Doctor] - As per Instructions
--- NOTE | 2017-06-08 08:44 | CPEKG ---
Heart Rate: 94 RR Interval: 638 P-R Interval: 140 QRSD Interval: 76 QT Interval: 340 QTC Interval: 426 P [place]: 75 QRS [place]: 61 T Wave [place]: 35 EKG Severity - OTHERWISE NORMAL ECG - EKG Impression: SINUS ARRHYTHMIA, RATE [id number] Electronically Signed By: Obi Flores 10-Jun-2017 08:31:09
[2017-06-08 09:12] LABS: % IMMATURE GRANULYOCYTES 0.3 % (0.0-1.1); ABSOLUTE IMMATURE GRANULOCYTES 0.02 10^3/uL (0.00-0.10); ADD DIFF? NO; ADD MORPH? NO; ADD SCAN? NO; ATYPICAL LYMPHOCYTE FLAG 0 (0-99); FRAGMENT RBC FLAG 0 (0-99); HEMATOCRIT 43.4 % (38.0-47.0); HEMOGLOBIN 15.2 g/dL (12.6-16.3); LEFT SHIFT FLG 0 (0-99); LIPEMIA HEMOLYSIS FLAG 90 (0-99); MEAN CELL HEMOGLOBIN 32.8 pg (27.9-34.1); MEAN CELL VOLUME 93.5 fL (81.5-99.8); MEAN PLATELET VOLUME 11.4 fL (8.7-11.7); PLATELET CLUMPS FLAG 0 (0-99); PLATELET COUNT 144 10^3/uL (150-400); RED BLOOD CELL COUNT 4.64 10^6/uL (4.18-5.33); RED CELL DISTRIBUTION WIDTH 11.9 % (11.5-15.2)
[2017-06-08 09:27] LABS: ANION GAP 16 mEq/L (8-16); CALCIUM 9.6 mg/dL (8.5-10.4); CARBON DIOXIDE 21 mEq/l (22-31); CHLORIDE 103 mEq/L (97-110); CREATININE 0.6 mg/dL (0.6-1.0); GLOMERULAR FILTRATION RATE > 60; GLUCOSE 93 mg/dL (70-100); POTASSIUM 4.1 mEq/L (3.5-5.2); SODIUM 140 mEq/L (134-144)
[2017-06-08 09:39] LABS: TROPONIN I < 0.012 ng/mL (0.000-0.034)
[2017-06-08] MEDS ORDERED: IOPAMIDOL (ISOVUE 370) 100 ML BTL IV ONE (09:46)
[2017-06-08] MEDS ORDERED: KETOROLAC 30 MG/1 ML SDV IVP ONE (10:19)
[2017-06-08 11:07] VITALS: BP 104/72; PULSE 96; O2SAT 95
[2017-06-08 11:19] VITALS: TEMP 98.2
== END 2017-06-08 11:19 | disposition home or self-care (01) ==
DX: R07.9 Chest pain, unspecified (principal)
CPT/HCPCS: 96374; J1885; Q9967

== ENCOUNTER 2017-07-04 10:40 | Day surgery (SDC) | payer BC, MEDICAID ==
[2017-07-04] MEDS ORDERED: LR 1,000 ML IV ONE (11:15)
[2017-07-04] MEDS ORDERED: LIDOCAINE 1% 2 ML INJ ID PRN (11:15)
[2017-07-04] MEDS ORDERED: PROPOFOL/EMULSION 500 MG/50 ML BOTTLE IV ONE (12:14)
[2017-07-04] MEDS ORDERED: MIDAZOLAM 2 MG/2 ML VIAL ONE (12:14)
--- NOTE | 2017-07-04 12:17 | PDHPUP ---
History & Physical Update H&P update statement: This history and physical update is based on an assessment of the patient which was completed after admission or registration (within 24 hours), but prior to the surgery/procedure. H&P update: H&P reviewed & patient examined H&P changes: no changes, mild lower abdo pain
--- NOTE | 2017-07-04 12:18 | PDANEPAE ---
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 - Other Health History Other Health History: none - Chronic Pain History Chronic Pain: Yes (pelvic) - Surgical History Prior Surgeries: 5 lap sx left oopherectomy. 1 bowel resection ANE Review of Systems Review of Systems: - Exercise capacity METS (RN): 4 METS ANE Patient History - Allergies Allergies/Adverse Reactions: naproxen Allergy (Intermediate, Verified 06/08/17 08:25) Dyspnea - Home Medications Home Medications: Progesterone, Micronized [Progesterone] 01/07/17 [Last Taken 07/03/17] GABAPENTIN 06/08/17 [Last Taken 07/03/17] Xanax 06/08/17 [Last Taken 07/03/17] oxyCODONE HCL/ACETAMINOPHEN [Percocet 5-325 mg Tablet] 06/27/17 [Last Taken 09:00] Hydroxyzine HCl 50 07/04/17 [Last Taken 07/03/17] Melatonin 07/04/17 [Last Taken 07/03/17] Trileptal 300mg (*) 600 07/04/17 [Last Taken 07/03/17] - NPO status NPO Since - Liquids (Date): 07/04/17 NPO Since - Liquids (Time): 07:00 NPO Since - Solids (Date): 07/03/17 NPO Since - Solids (Time): 08:30 - Smoking Hx Smoking Status: Never smoked - Family Anes Hx Family Hx Anesthesia Complications: none ANE Labs/Vital Signs - Vital Signs Blood Pressure: 113/70 Heart Rate: 82 Respiratory Rate: 14 Height: 160.02 cm Weight: 54.431 kg ANE Physical Exam - Airway Neck exam: FROM Mallampati Score: Class 1 - Pulmonary Pulmonary: no respiratory distress, no rales or rhonchi, clear to auscultation - Cardiovascular Cardiovascular: regular rate and rhythym, no murmur, rub, or gallop - ASA Status ASA Status: II ANE Anesthesia Plan Anesthesia Plan: MAC
[2017-07-04] MEDS ORDERED: ALBUTEROL 3 ML DEYVIAL IH PRN (12:24)
[2017-07-04] MEDS ORDERED: METOCLOPRAMIDE 10 MG/2 ML VIAL IVP PRN (12:24)
[2017-07-04] MEDS ORDERED: NALOXONE HCL 0.4 MG/ML INJ IVP PRN (12:24)
[2017-07-04] MEDS ORDERED: LR 500 ML IV PRN (12:24)
[2017-07-04] MEDS ORDERED: HYDROCODONE/APAP 5/325 TAB PO PRN (12:24)
[2017-07-04] MEDS ORDERED: ACETAMINOPHEN 500 MG TAB PO PRN (12:24)
[2017-07-04] MEDS ORDERED: ONDANSETRON 4 MG/2 ML VIAL IVP PRN (12:24)
[2017-07-04] MEDS ORDERED: fentaNYL 100 MCG/2 ML INJ IVP PRN (12:24)
[2017-07-04] MEDS ORDERED: DEXAMETHASONE 4 MG/ML VIAL IVP PRN (12:24)
[2017-07-04] MEDS ORDERED: PROMETHAZINE HCL 25 MG/ML INJ IVP PRN (12:24)
[2017-07-04] MEDS ORDERED: MEPERIDINE 25 MG/ML SYR IVP PRN (12:24)
[2017-07-04] MEDS ORDERED: OXYCODONE/APAP 5/325 TAB PO PRN (12:24)
[2017-07-04 12:49] VITALS: PULSE 90
--- NOTE | 2017-07-04 12:52 | POSTOPPROG ---
Post Op Note Date of Operation: 07/04/17 Surgeon: Aftab Alvarez Anesthesiologist: Lanre Anesthesia: Other (Specify) (IV general) Pre-op Diagnosis: endometriosis, change stool caliber, pain Post-op Diagnosis: mild abnml tissue aat rectal anastomosis, minimal stenosis Indication: change stool caliber, endmetriosis with rectal surgery Procedure: coln and bx and balloon dilate Findings: abnml tissue at anstomsosis miniaml stircture - no affect from dilation Inf/Abcess present in the surg proc area at time of surgery?: No EBL: Minimal (few ml from bx) Total fluids administered: 250 cc Complications: none immediate
--- NOTE | 2017-07-04 12:53 | POSTANESTH ---
Post Anesthetic Evaluation Cardiovascular Status: Normal, Stable Respiratory Status: Normal, Stable Level of Consciousness/Mental Status: Can Participate in Eval Pain Control: Adequate, Prn Tx Ordered Nausea/Vomiting Control: Adequate, Prn Tx Ordered Complications Possibly Related to Anesthesia: None Noted
--- NOTE | 2017-07-04 12:55 | GIREPORT ---
[facility] Surgical Services - Endoscopy Department Patient Name: Nimco Wong Procedure Date: 07/04/2017 12:06 PM Patient Type: Outpatient Attending MD/ ER Physician: Jabari Sepulveda Procedure: Colonoscopy Indications: Personal history of digestive disease, Abdominal pain in the left lower quadrant, Change in bowel habits, Change in stool caliber Providers: Joshua Alvarez MD Medicines: Sedation Required Anesthesia Staff Assistance IV general Complications: No immediate complications. Estimated blood loss: Minimal. Description of Procedure: After obtaining informed consent, the scope was passed under direct vis ion. Throughout the procedure, the patient's blood pressure, pulse, and oxyg en saturations were monitored continuously. The Colonoscope with irrigatio n channel was introduced through the anus and advanced to the terminal il eum, with identification of the appendiceal orifice and IC valve. The colono scopy was performed without difficulty. The patient tolerated the procedure w ell. The quality of the bowel preparation was good. Findings: The digital rectal exam was abnormal. The terminal ileum appeared normal. There was evidence of a prior end-to-end colo-colonic anastomosis in th e mid rectum. This was patent and was characterized by congestion, edema, erythema, inflammation and mild stenosis. The anastomosis was traversed . Biopsies were taken with a cold forceps for histology. Estimated blood loss was minimal. A TTS dilator was passed through the scope. Dilation with a 15-16.5-18 mm and an 18-19-20 mm colonic balloon dilator was performed. The dilation site was examined and showed no change. Estimated blood loss: none. The exam was otherwise without abnormality. Estimated Blood Loss: Estimated blood loss was minimal. Post Op Diagnosis: - Abnormal digital rectal exam. - The examined portion of the ileum was normal. - Patent end-to-end colo-colonic anastomosis, characterized by congesti on, edema, erythema, inflammation and mild stenosis. Biopsied. Dilated with no visible effect. Can move the 20mm balloon thru mild stenosis with no resistance. - The examination was otherwise normal. Recommendation: - Await pathology results. - My office will call with the pathology result with 5-7 days. If you h ave not heard from my office by 12-14, do not assume the pathology is yohannes l, please call [phone] to get the pathology reults. - Patient has a contact number available for emergencies. The signs and symptoms of potential delayed complications were discussed with the pat ient. Return to normal activities tomorrow. Written discharge instructions we re provided to the patient. - Continue present medications. - Discharge patient to home (ambulatory). - Return to primary care physician as previously scheduled. - Return to endoscopist at appointment to be scheduled. - Return to referring physician as previously scheduled. - Repeat colonoscopy at age 50 for screening purposes. - Thank you for allowing me to help in your patient's care. Do not hesi garcia to call with any questions. Attending Participation: I personally performed the entire procedure. Antonio Lewis M.D Joshua Alvarez MD 07/04/2017 12:55:34 PM This report has been signed electronically.Joshua Alvarez MD Number of Addenda: 0 Note Initiated On: 07/04/2017 12:06 PM Total Procedure Duration Time 0 hours 16 minutes 13 seconds [email or web address]
[2017-07-04] MEDS ORDERED: LIDOCAINE 2% 5 ML SDV ONE (12:57)
[2017-07-04 13:00] VITALS: TEMP 97.5
[2017-07-04 13:11] VITALS: BP 107/77; RESP 15; O2SAT 95
== END 2017-07-04 13:30 | disposition home or self-care (01) ==
LOC: FSGY 10:40
PROVIDERS: ATTEND Internal Medicine Gastroenterology
DX: K91.89 Other postprocedural complications and disorders of digestive system (principal); R19.4 Change in bowel habit; R19.5 Other fecal abnormalities; Z98.0 Intestinal bypass and anastomosis status; Z87.19 Personal history of other diseases of the digestive system; Z90.49 Acquired absence of other specified parts of digestive tract
CPT/HCPCS: 45378; 45380; 45386; C1726; J2250; J2704

== ENCOUNTER 2018-07-15 17:24 | Emergency (ER) | payer BC, MEDICAID ==
--- NOTE | 2018-07-15 17:36 | EDPHY ---
H & P Stated Complaint: 2 days ago started minocycline 1 hr after developed coates/r eye pain Time Seen by Provider: 07/15/18 17:36 HPI/ROS: HPI CHIEF COMPLAINT: Right-sided headache, right eye pain. After starting minocycline. HISTORY OF PRESENT ILLNESS: This is a 28-year-old female presents emergency room by private vehicle for right-sided headache and right eye pain. Patient states 3 days ago she started taking minocycline for acne. Approximately an hour after she started taking this medicine she developed a right-sided headache. She then took another dose the next day and another dose the next day developed worsening right-sided headache right eye pain. She complains of blurry vision out of her right eye. She called her pickle maker recommend she come to the emergency room for evaluation. She denies any fever, denies any neck pain, denies any chest pain shortness of breath or vomiting. Past Medical History: Stage IV endometriosis Past Surgical History: Multiple abdominal surgeries. Left oophorectomy. Pelvic abscess Social History: Denies drugs alcohol tobacco. Family History: Noncontributory ROS REVIEW OF SYSTEMS: 10 Systems were reviewed and negative with the exception of the elements mentioned in the history of present illness. Exam Constitutional nontoxic no acute distress triage nursing summary reviewed, vital signs reviewed, awake/alert. Eyes left eye normal, right eye extra movements intact, pupil equal round react to light, eye exam without dilatation unremarkable I do not appreciate any hemorrhage, anterior chamber normal, no flare. Visual acuity reviewed. She is soft globe. Nontender when you palpate. Additionally did not see any or visualize any papilledema on exam. HENT normal inspection, atraumatic, moist mucus membranes, no epistaxis, neck supple/ no meningismus, no raccoon eyes. Respiratory clear to auscultation bilaterally, normal breath sounds, no respiratory distress, no wheezing. Cardiovascular rate normal, regular rhythm, no murmur, no edema, distal pulses normal. Gastrointestinal soft, non-tender, no rebound, no guarding, normal bowel sounds, no distension, no pulsatile mass. Genitourinary no CVA tenderness. Musculoskeletal no midline vertebral tenderness, full range of motion, no calf swelling, no tenderness of extremities, no meningismus, good pulses, neurovascularly intact. Skin pink, warm, & dry, no rash, skin atraumatic. Neurologic awake, alert and oriented x 3, AAOx3, moves all 4 extremities equally, motor intact, sensory intact, CN II-XII intact, normal cerebellar, normal vision, normal speech. Psychiatric normal mood/affect. Heme/Lymph/Immune no lymphadenopathy. Differential Diagnosis: Includes but is not limited to in a particular order migraine headache, cluster headache, intracranial hypertension, papilledema, glaucoma Medical Decision Making: Plan for this patient IV establishment, IV medications for migraine up , CT scan head without contrast, and re- evaluate. Re-evaluation: 1750: spoke with Dr. Dumont discussed case in detail. He recommends CT scan head without contrast, migraine medication if improved and has an unremarkable neurological exam he feels comfortable with her being discharged from the ER following up with Neurology Clinic. He does believe that it is minocycline, Causing the right-sided headache and eye pain. He has seen this in the past. He recommends refraining from taking that agent. [facility] reviewed: R 20/20, L 20/30, B 20/[address] scan head without contrast negative for acute abnormality. Called to me by Dr. Natanael Tucker. 1957: I did re-evaluate this patient this time she is feeling slightly better however she did not complete the entire migraine cocktail as she refused some of the medications. She still has right-sided headache. Over slightly improved. I did reexamine her at 7:58 p.m. Her neuro exam is unremarkable. No focal neuro deficit. She is feeling better. She is not vomiting. CT scan and blood work reassuring. I went over this in detail with her. I do recommend she follows up with Neurology close on outpatient basis Return precautions discussed with her return emergency room if worsening headache, fever, vomiting. She is comfortable this plan. 2009: Patient has refused more medications here, and additionally refused her migraine medications when she arrived. She still complains of right-sided headache however it has improved. Again her neurological exam is unremarkable, visual acuity unremarkable. Her eye exam here is unremarkable. I do recommend she follows up with Neurology on outpatient basis. I do recommend she stop taking Minocycline. Additionally return precautions discussed. 2010: Notified by nursing staff that the patient is requesting be discharged home. I was re-medicating her for ongoing headache however she has declined we medication. She is requesting discharge. Source: Patient - Personal History LMP (Females 10-55): 8-14 Days Ago Current Tetanus Diphtheria and Acellular Pertussis (TDAP): Yes - Medical/Surgical History Hx Asthma: No Hx Chronic Respiratory Disease: No Hx Diabetes: No Hx Cardiac Disease: No Hx Renal Disease: No Hx Cirrhosis: No Hx Alcoholism: No Hx HIV/AIDS: No Hx Splenectomy or Spleen Trauma: No Other PMH: endometriosis. chronic pain (under pain mgt care),colon resection - Social History Smoking Status: Never smoked Constitutional: Initial Vital Signs Temperature (C) 37.2 C 07/15/18 17:28 Heart Rate 74 07/15/18 17:28 Respiratory Rate 17 07/15/18 17:28 Blood Pressure 108/65 07/15/18 17:28 O2 Sat (%) 95 07/15/18 17:28 O2 Delivery Mode Room Air O2 (L/minute) 2 Allergies/Adverse Reactions: naproxen Allergy (Intermediate, Verified 07/15/18 17:25) Dyspnea Home Medications: Medication Instructions Recorded Progesterone, Micronized 01/07/17 [Progesterone] GABAPENTIN 06/08/17 oxyCODONE HCL/ACETAMINOPHEN 06/27/17 [Percocet 5-325 mg Tablet] Amitriptyline HCl 07/15/18 MINOCYCLINE HCL 07/15/18 Medical Decision Making - Diagnostics Imaging Results: Imaging Impressions Head CT 07/15/18 17:42 Impression: There is no acute intracranial abnormality identified on this unenhanced CT evaluation. If there is further clinical concern regarding the patient's symptoms, MR imaging is suggested, if not otherwise contraindicated. Findings were discussed with Kennedy Hutchins MD at 18:52, on 07/15/2018. - Data Points Laboratory Results: Laboratory Results 07/15/18 18:00 07/15/18 18:00 07/15/18 07/15/18 07/15/18 18:00 18:00 18:00 WBC 7.47 10^3/uL 10^3/uL (3.80-9.50) RBC 4.46 10^6/uL 10^6/uL (4.18-5.33) Hgb 14.3 g/dL g/dL (12.6-16.3) Hct 41.8 % % (38.0-47.0) MCV 93.7 fL fL (81.5-99.8) MCH 32.1 pg pg (27.9-34.1) MCHC 34.2 g/dL g/dL (32.4-36.7) RDW 11.6 % % (11.5-15.2) Plt Count 154 10^3/uL 10^3/uL (150-400) MPV 11.7 fL fL (8.7-11.7) Neut % (Auto) 56.5 % % (39.3-74.2) Lymph % (Auto) 35.2 % % (15.0-45.0) [place] % (Auto) 7.1 % % (4.5-13.0) Eos % (Auto) 0.4 % L % (0.6-7.6) Baso % (Auto) 0.5 % % (0.3-1.7) Nucleat RBC Rel Count 0.0 % % (0.0-0.2) Absolute Neuts (auto) 4.22 10^3/uL 10^3/uL (1.70-6.50) Absolute Lymphs (auto) 2.63 10^3/uL 10^3/uL (1.00-3.00) Absolute Monos (auto) 0.53 10^3/uL 10^3/uL (0.30-0.80) Absolute Eos (auto) 0.03 10^3/uL 10^3/uL (0.03-0.40) Absolute Basos (auto) 0.04 10^3/uL 10^3/uL (0.02-0.10) Absolute Nucleated RBC 0.00 10^3/uL 10^3/uL (0-0.01) Immature Gran % 0.3 % % (0.0-1.1) Immature Gran # 0.02 10^3/uL 10^3/uL (0.00-0.10) Sodium 139 mEq/L mEq/L (135-145) Potassium 3.6 mEq/L mEq/L (3.3-5.0) Chloride 102 mEq/L mEq/L (97-110) Carbon Dioxide 28 mEq/l mEq/l (22-31) Anion Gap 9 mEq/L mEq/L (6-14) BUN 9 mg/dL mg/dL (7-23) Creatinine 0.6 mg/dL mg/dL (0.6-1.0) Estimated GFR > 60 Glucose 78 mg/dL mg/dL (70-100) Calcium 9.2 mg/dL mg/dL (8.5-10.4) Total Bilirubin 0.4 mg/dL mg/dL (0.1-1.4) AST 20 IU/L IU/L (14-46) ALT 24 IU/L IU/L (9-52) Alkaline Phosphatase 76 IU/L IU/L (38-126) Total Protein 7.3 g/dL g/dL (6.3-8.2) Albumin 4.2 g/dL g/dL (3.5-5.0) Beta HCG, Qual NEGATIVE Medications Given: Discontinued Medications Dexamethasone (Decadron Injection) 10 mg IVP EDNOW ONE Stop: 07/15/18 17:43 Last Admin: 07/15/18 18:10 Dose: 10 mg Diphenhydramine HCl (Benadryl Injection) 50 mg IVP EDNOW ONE Stop: 07/15/18 17:43 Last Admin: 07/15/18 18:02 Dose: 50 mg Hydromorphone HCl (Dilaudid) 0.5 mg IVP EDNOW ONE Stop: 07/15/18 17:43 Last Admin: 07/15/18 18:14 Dose: Not Given Sodium Chloride (Ns) 1,000 mls @ 0 mls/hr IV ONCE ONE; Wide Open PRN Reason: Protocol Stop: 07/15/18 17:43 Last Admin: 07/15/18 18:01 Dose: 1,000 mls Ketorolac Tromethamine (Toradol) 15 mg IVP EDNOW ONE Stop: 07/15/18 18:22 Last Admin: 07/15/18 18:25 Dose: 15 mg Metoclopramide HCl (Reglan Injection) 10 mg IVP EDNOW ONE Stop: 07/15/18 17:43 Last Admin: 07/15/18 18:14 Dose: Not Given Promethazine HCl (Phenergan) 6.25 mg IVP ONCE ONE Stop: 07/15/18 18:22 Last Admin: 07/15/18 18:25 Dose: 6.25 mg Departure - Departure Disposition: Home, Routine, Self-Care Clinical Impression: Headache Qualifiers: Headache type: unspecified Headache chronicity pattern: acute headache Intractability: intractable Qualified Code(s): R51 - Headache Condition: Good Instructions: Acute Headache (ED) Additional Instructions: 1. Stay well-hydrated and rest. 2. Stop taking that medication 3. Return emergency room if worsening symptoms 4. Please follow up with Neurology. Referrals: NONE *PRIMARY CARE P,. [Primary Care Provider] - As per Instructions Aftab Dumont DO [Medical Doctor] - As per Instructions
[2018-07-15] MEDS ORDERED: HYDROmorphONE/DILAUDID 2 MG/ML INJ IVP ONE ×2 (17:42→19:58)
[2018-07-15] MEDS ORDERED: NS 1,000 ML IV ONE ×2 (17:42→19:58)
[2018-07-15] MEDS ORDERED: DEXAMETHASONE 10 MG/ML VIAL IVP ONE (17:42)
[2018-07-15] MEDS ORDERED: DEXAMETHASONE 4 MG/ML VIAL ONE ×2 (17:57)
[2018-07-15] MEDS: METOCLOPRAMIDE 10 MG/2 ML VIAL IVP ONE ×2 (18:02→18:14)
[2018-07-15] MEDS ORDERED: KETOROLAC 15 MG/1 ML SDV IVP ONE ×2 (18:21→20:06)
[2018-07-15] MEDS ORDERED: PROMETHAZINE HCL 25 MG/ML INJ IVP ONE (18:21)
[2018-07-15 19:07] LABS: PLATELET COUNT 154 10^3/uL (150-400)
[2018-07-15] MEDS ORDERED: HYDROmorphONE/DILAUDID 1 MG/ML INJ ONE (19:59)
[2018-07-15 20:23] VITALS: BP 122/72
== END 2018-07-15 20:23 | disposition home or self-care (01) ==
DX: R51 Headache (principal); H57.11 Ocular pain, right eye; E86.9 Volume depletion, unspecified
CPT/HCPCS: 96374; J1100; J1170; J1200; J1885; J2550; J2765